=== PATIENT | male | born 1945 | race Caucasian/White ===

== ENCOUNTER 2019-03-30 16:23 | Inpatient (IN) | payer OTHER ==
[~2019-03-30] VITALS: Ht 182.9 cm; Wt 89.7 kg
--- NOTE | ~2019-03-30 | CON ---
[address] [address] CONSULTATION Name: SAURABH PULIDO Room: [address] IN .R.#: [id number] Admission: 03/30/19 Attend Phys: Hawk Malagon MD Discharge: Date of : 43 Report #: [id number] THIS REPORT FOR: //name// CC: Marnie Malagon DATE OF SERVICE: 04/01/2019 REASON FOR CONSULTATION: 1. Left diabetic foot ulceration with lower extremity cellulitis. 2. Left foot radiographs negative for osteomyelitis or soft tissue emphysema. HISTORY OF PRESENT ILLNESS: The patient is a 73-year-old male well known to me from my office. I have been treating him for a diabetic foot ulceration to the left plantar fifth metatarsal styloid, which has recently developed cellulitis extending to the lower leg. He had partial left fifth ray resection performed by myself in 2013 due to osteomyelitis to the distal fifth MTP joint. He had an uneventful postoperative healing course at that time with no vascular intervention required. Roughly 3 days ago, he noticed the development of inflammation with advancing erythema, edema and pain originating from the plantar wound extending proximally up the leg. He denies fevers or chills. Blood glucose not frequently checked. He presented to the Emergency Room 2 days ago and was admitted for parenteral antibiotics and wound care. Venous Doppler negative for DVT. Wound culture was taken today. He is on parenteral vancomycin and ceftriaxone with good tolerance. Blood cultures pending, negative x 2. LABORATORY DATA: WBC 8.3, RBC 4.49, hemoglobin 12.1, hematocrit 37.7, platelets 246. BUN 14, creatinine 0.8, glucose 151. PHYSICAL EXAMINATION: Temperature 98.1, blood pressure 135/72. There is an ulceration to left plantar fifth metatarsal styloid that measures roughly 3.0 x 3.0 cm. There is localized erythema and edema with undermining along the wound periphery. The erythema extends along the dorsal lateral foot to the lower leg, and is receding per the patient history. He has palpable left dorsalis pedis and posterior tibial pulses. There is no pallor, elevation or signs of acute vascular embarrassment to the extremity. The wound bed has a pale pink granular wound bed with some overlying pale slough. There is no exposed bone or tendon. There is no fluctuance or crepitation. There is keratotic slough to the wound margins with undermining with no expressible fluid. IMPRESSION: Diabetic foot ulceration, left plantar fifth metatarsal styloid with cellulitis, no signs of osteomyelitis. PLAN: Excisional ulcer debridement performed with scissors to excise subcutaneous tissue, slough and callus. Scant [place] [address] CONSULTATION Name: SAURABH PULIDO Room: [address] IN M.R.#: [id number] Admission: 03/30/19 Attend Phys: Hawk Malagon MD Discharge: Date of : 44 Report #: [id number] The wound was cleansed and dressed with Aquacel Ag and bordered foam gauze and the extremity with a [id number] Tubigrip stockinette. I do not anticipate any surgical intervention or further imaging at this point. I will order an arterial duplex Doppler. I will order physical therapy for weightbearing to the heel with a walker for short distances and transfers. By: [id number] Figueroa DPM /hari
[~2019-03-30 16:23] MED LIST: BAYER CHEWABLE81 MG PO; CEFAZOLIN2 GM/20 ML IV; CRESTOR10 MG PO; CRESTOR5 MG PO; GLIPIZIDE ER2.5 MG PO; GLIPIZIDE ER5 MG PO; GLUCOPHAGE500 MG PO; METOPROLOL TAR100 MG PO; NORCO 5-325 TA1 EACH PO; ONDANSETRON HCL4 M2 PO; TOPROL XL25 MG PO
[2019-03-30 16:27] VITALS: BP 181/102
[2019-03-30] MEDS ORDERED: TRESIBA FL100 UNIT/1 SUBQ (16:33)
[2019-03-30] MEDS ORDERED: JARDIANCE10 MG PO (16:34)
[2019-03-30 17:11] LABS: ABSOLUTE BASOPHILS 0.1 thou/uL (0.0-0.2); ABSOLUTE EOSINOPHILS 0.3 thou/uL (0.0-0.7); ABSOLUTE LYMPHOCYTES 1.1 thou/uL (0.8-5.3); ABSOLUTE MONOCYTES 0.9 thou/uL (0.0-1.2); ABSOLUTE NEUTROPHILS 6.2 thou/uL (1.6-8.1); BASOPHILS 0.8 %; HEMATOCRIT 40.9 % (42.0-52.0); HEMOGLOBIN 13.4 gm/dL (14.0-18.0); LYMPHOCYTES 12.6 %; MCH 27.3 pg (26.0-34.0); MCHC 32.7 g/dL (28.0-37.0); MCV 83.3 fL (80.0-100.0); MONOCYTES 10.9 %; MPV 8.6 fl. (7.2-11.1); NUCLEATED RBCS 0 /100WBC; PLATELET COUNT* 238 thou/uL (150-400); POLYS 72.7 %; RDW-CV 14.2 % (10.5-14.5); WBC 8.5 thou/uL (4.0-11.0)
[2019-03-30 17:19] LABS: CALCIUM 9.1 mg/dL (8.5-10.1); CREATININE 0.9 mg/dL (0.6-1.3); POTASSIUM 4.6 mmol/L (3.5-5.1)
[2019-03-30 17:29] LABS: ALBUMIN 3.4 g/dL (3.4-5.0); TOTAL BILIRUBIN 0.6 mg/dL (<0.1-1.0); TOTAL PROTEIN 7.9 g/dL (6.4-8.2)
[2019-03-30 17:46] VITALS: BP 168/82
[2019-03-30 18:15] VITALS: BP 156/84
--- NOTE | 2019-03-30 19:29 | NUR ---
PATIENT ADMITTED TO ROOM 103 FROM ER. ALERT AND ORIENTED X 4. NO COMPLAINTS OF PAIN. DOPPLER OF LEFT LEG NEGATIVE. WOUND PHOTOS TAKEN OF LEFT LEG PER PROTOCOL, DRESSING PLACED TO LEFT FOOT TO WOUND. DR. HUDSON TO BE CONSULTED. IVF ROCEPHIN STARTED IN ER AND FINISHED ON FLOOR. IV INFILTRATED AFTER DOSE GIVEN, IV DC'D. VANCOMYCIN AND SCHED IVF TO INFUSE. ORIENTED TO CALL LIGHT. UP AD NEW. CALL LIGHT WITHIN REACH, WILL CONTINUE TO MONITOR.
[2019-03-30 19:50] VITALS: BP 146/80
--- NOTE | 2019-03-31 05:08 | NUR ---
PT SLEPT FAIRLY WELL OVERNIGHT. UP INDEP WITH SURGICAL SHOES TO BR TO VOID WITHOUT DIFFICULTY. RFA IVF INFUSING PER PUMP, ABX GIVEN ORDERED. PT DENIES PAIN. LLE RED AND EDEMATOUS, MEPILEX INTACT TO OUTER L FOOT. HS ACCUCHECK 201, INSULIN GIVEN ORDERED. NO LABS THIS MORNING, VANC TROUGH 1800 TODAY. AOX4, ABLE TO USE CALL LITE AND MAKE NEEDS KNOWN. BLACKFEET.
[2019-03-31 08:00] VITALS: BP 136/77
[2019-03-31 16:00] VITALS: BP 142/68
--- NOTE | 2019-03-31 16:07 | NUR ---
PT.SITTING ON EDGE OF BED. HE WAS ALERT AND ORIENTED AND A BIT HARD OF HEARING. HE LIVES WITH HIS . HE NORMALLY DOESN'T USE ANY DME BUT THEY HAVE CRUTCHES, A WALKER,AND CANE AT HOME. HE HAS HAD HH IN THE PAST BUT CAN'T REMEMBER NAME OF AGENCY. HE HAD IV ANTIBIOTICS AND A WOUND VAC AT HOME 5 YEARS AGO FOR FOOT WOUND. HE IS WAITING ON TO COME IN TO LOOK AT HIS WOUND. ENCOURAGED PT.TO ELEVATE HIS LEGS. FEET ARE PURPLE WHEN DEPENDENT. HE SAID HE MIGHT GO SIT IN THE RECLINER FOR AWHILE.
--- NOTE | 2019-03-31 18:07 | NUR ---
PATIENT ALERT AND ORIENTED X 4. VITAL SIGNS STABLE ON ROOM AIR. UP INDEPENDENTLY IN ROOM. IV PATENT WITH FLUIDS INFUISNG. ANTIBIOTICS GIVEN ORDERED. LEFT LOWER LEG RED AND EDEMATOUS. DRESSING TO WOUND ON LEFT FOOT CHANGED. CLEAN, DRY, AND INTACT. LEFT LEG PROPPED UP ON PILLOW. HOURLY ROUNDS MAINTAINED THROUGHOUT THE SHIFT. CALL LIGHT WITHIN REACH. NURSING WILL CONTINUE TO MONITOR.
[2019-03-31 20:00] VITALS: BP 143/74
[2019-04-01 04:24] LABS: ABSOLUTE BASOPHILS 0.1 thou/uL (0.0-0.2); ABSOLUTE EOSINOPHILS 0.2 thou/uL (0.0-0.7); ABSOLUTE LYMPHOCYTES 1.2 thou/uL (0.8-5.3); ABSOLUTE MONOCYTES 0.8 thou/uL (0.0-1.2); BASOPHILS 0.7 %; HEMATOCRIT 37.7 % (42.0-52.0); HEMOGLOBIN 12.1 gm/dL (14.0-18.0); LYMPHOCYTES 13.9 %; MCHC 32.1 g/dL (28.0-37.0); MONOCYTES 9.6 %; MPV 8.4 fl. (7.2-11.1); NUCLEATED RBCS 0 /100WBC; PLATELET COUNT* 246 thou/uL (150-400); POLYS 72.8 %; RBC 4.49 mil/uL (4.50-6.00); WBC 8.3 thou/uL (4.0-11.0)
[2019-04-01 04:33] LABS: CREATININE 0.8 mg/dL (0.6-1.3); POTASSIUM 4.2 mmol/L (3.5-5.1)
--- NOTE | 2019-04-01 05:34 | NUR ---
PT SLEPT WELL OVERNIGHT. RFA IVF INFUSING PER PUMP, ABX GIVEN ORDERED.HS ACCUCHECK 155, INSULIN GIVEN WITH SNACK. UP AD NEW IN ROOM WITH SURGICAL SHOE TO BATHROOM TO VOID WITHOUT DIFFICULTY. DENIES PAIN. AM LABS DRAWN. ABLE TO USE CALL LITE AND MAKE NEEDS KNOWN. [place].
--- NOTE | 2019-04-01 07:05 | CON ---
[address] [address] CONSULTATION Name: SAURABH PULIDO Room: [address] IN .R.#: [id number] Admission: 03/30/19 Attend Phys: Hawk Malagon MD Discharge: Date of : 44 Report #: [id number] THIS REPORT FOR: //name// CC: Marnie Royalnah Hawk Malagon DATE OF SERVICE: 03/31/2019 INFECTIOUS DISEASE CONSULTATION ATTENDING PHYSICIAN: Hawk Malagon MD REASON FOR EVALUATION: Deep infected ulcer involving the lateral aspect of the left mid-foot as well as skin and soft tissue infection with cellulitic process involving the left leg. HISTORY OF PRESENT ILLNESS: The patient examined. This is a 73-year-old gentleman with diabetes mellitus diagnosed in 2010. He has had previous issues with bilateral lower extremities at fifth metatarsal and toe amputations, previously longstanding ulcer about the mid portion of the lateral aspect. Of course in the last 3-4 days prior to admission, he developed increasing erythema and discomfort associated with the leg to below the knee. He generally has experienced systemic types of illnesses. Denies any pulmonary or gastrointestinal complaints. Did note the ulcer, increasing drainage. There was a bit of an odor. Evaluation thus far has included a lactic acid 1.7. Ultrasound of the lower extremities showed absence of any deep venous thrombosis. He was empirically placed on broad-spectrum antimicrobial therapy with vancomycin as well as ceftriaxone. ALLERGIES: None known. CURRENT MEDICATIONS: Include enoxaparin, pantoprazole, hydralazine as needed, ceftriaxone 1 gram daily, vancomycin, insulin lispro, metoprolol, atorvastatin, metformin, p.r.n. analgesics and antiemetics. 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 SOCIAL HISTORY: Smokes a pack a day, occasional ethanol, no illicit drug use. FAMILY HISTORY: Noncontributory. REVIEW OF SYSTEMS: Otherwise, unremarkable 10-point review of systems with exception of the above [place] [address] CONSULTATION Name: SAURABH PULIDO Room: [address]#: [id number] Admission: 03/30/19 Attend Phys: Hawk Malagon MD Discharge: Date of : 44 Report #: [id number] PHYSICAL EXAMINATION: GENERAL: Alert, cooperative, appropriate. He does have some hearing deficits. He is reasonably well nourished. VITAL SIGNS: Temperature 98.4, pulse 60, respirations 16, blood pressure 136/77. SKIN: Warm, dry. HEENT: Normocephalic. Extraocular muscles intact. NECK: Supple. LUNGS: Clear to auscultation bilaterally. HEART: Regular rate and rhythm without murmur. ABDOMEN: Obese, soft, nontender. EXTREMITIES: Left lower extremity has changes consistent with venous stasis insufficiency, some underlying dermatitis, has a more inflammatory cellulitic type eruption to below the knee. It is palpably tender. There is some moderate degree of inflammation. The lateral aspect of his foot has an ulcer that has got a moderate degree of necrosis. There is an odor, likely some expressible debris and exudate, it is tender as well. AND RECTAL: Deferred. LABORATORY DATA: CBC: White count of 8.5, H and H 13.4 and 40.9, platelets of 238. Differential is unremarkable. Electrolytes: Sodium 135, potassium 4.6, chloride 97, bicarbonate is 30, anion gap of 8, BUN and creatinine 24 and 0.9, glucose of 151. LFTs unremarkable. Albumin 3.4, total protein 7.9. Estimated GFR of 82. Lactic acid 1.7. Blood cultures sterile. ASSESSMENT AND PLAN: Left lower extremity chronic ulceration. I think there is a component of infection, may be polymicrobial. We will continue empiric antimicrobial combination, antibiotic combination. We will go ahead and try to collect a culture specimen, may well need additional imaging. Needs to see Podiatry, Dr. Figueroa has been following, defer to him about his preference. At some point he will need operative debridement. <ELECTRONICALLY SIGNED> By: Javad Daniels MD 04/01/19 0705 1108 [id number] Daniels MD /nt
[2019-04-01 07:51] VITALS: BP 158/88
--- NOTE | 2019-04-01 13:15 | NUR ---
COMNSULTED TO PLACE MIDLINE FOR PT ON VANCOMYCIN FOR NEXT FEW DAYS. PT BROUGHT TO INFUSION LAB. RIGHT UPPER ARM ASSESSED WITH ULTRASOUND. RIGHT CEPHALIC VEIN IDENTIFIED AND NOTED TO BE WIDLEY PATENT. 8CM POWER GLIDE MIDLINE PLACED ON 1ST ATTEMPT WITH ULTRASOUND PER PROTOCOL. LINE NOTED TO HAVE GOOD BRISK BLOOD RETURN AND EASY FLUSH. LINE SECURED INCLUDING STATLOCK AND BIOPATCH. TOLERATED WELL. TRANSPORTED BACK TO ROOM PER GUIDE WINDER. REPORT CALLED TO PRIMARY RN AND LINE RELEASED FOR USE.
[2019-04-01 15:56] VITALS: BP 135/72
--- NOTE | 2019-04-01 17:28 | NUR ---
PT A&Ox4. VITALS STABLE. MIDLINE PLACED, INFUSING. TUBAGRIP IN PLACE ON LLE. UP AD NEW. DENIED PAIN. ON RA. CALL LIGHT WITHIN REACH. WILL CONTINUE TO MONITOR.
[2019-04-01 20:00] VITALS: BP 142/68
[2019-04-02 04:45] LABS: CALCIUM 8.4 mg/dL (8.5-10.1); CREATININE 0.7 mg/dL (0.6-1.3); POTASSIUM 3.8 mmol/L (3.5-5.1)
[2019-04-02 04:47] LABS: ABSOLUTE BASOPHILS 0.1 thou/uL (0.0-0.2); ABSOLUTE EOSINOPHILS 0.2 thou/uL (0.0-0.7); ABSOLUTE LYMPHOCYTES 1.1 thou/uL (0.8-5.3); ABSOLUTE NEUTROPHILS 5.5 thou/uL (1.6-8.1); BASOPHILS 0.8 %; EOSINOPHILS 2.6 %; HEMATOCRIT 36.4 % (42.0-52.0); HEMOGLOBIN 11.7 gm/dL (14.0-18.0); LYMPHOCYTES 14.3 %; MCH 26.9 pg (26.0-34.0); MONOCYTES 12.1 %; MPV 8.1 fl. (7.2-11.1); NUCLEATED RBCS 0 /100WBC; PLATELET COUNT* 245 thou/uL (150-400); POLYS 70.2 %; RBC 4.34 mil/uL (4.50-6.00); WBC 7.8 thou/uL (4.0-11.0)
--- NOTE | 2019-04-02 05:11 | NUR ---
PT SLEPT WELL OVERNIGHT. COMPLAINED OF SOME EDEMA OF HANDS AND FACE EARLY IN SHIFT, NOLEN. DR NOTIFIED AND IVF DISCONTINUED. ABX GIVEN SCHEDULED. UP AD NEW IN ROOM, TO BR TO VOID WITHOUT DIFFICULTY. TUBIGRIP IN PLACE TO LLEG. NO COMPLAINTS OF PAIN. SHASTA MIDLINE SL, ABX. HS ACCUCHECK 163, INSULIN GIVEN ORDERED. AM LABS DRAWN. ABLE TO USE CALL LITE AND MAKE NEEDS KNOWN.
[2019-04-02 07:44] VITALS: BP 119/72
[2019-04-02 13:06] VITALS: BP 119/72
[2019-04-02] MEDS ORDERED: MINOCYCLINE HC100 M2 PO (13:22)
[2019-04-02] MEDS ORDERED: CIPRO500 MG PO (14:51)
[2019-04-02 16:00] VITALS: BP 116/76
--- NOTE | 2019-04-02 17:07 | NUR ---
PT.TO BE DISCHARGED TODAY ON 2 ORAL ANTIBIOTICS. HOME HEALTH NURSING ORDERED FOR DRESSING CHANGES. DISCUSSED WITH PT. HE USED [facility] IN THE PAST AND WOULD LIKE TO USE THEM AGAIN. FAXED H&P,FACE SHEET, FACE TO FACE FORM,PODIATRY CONSULT,COMPRESSION WRAP ORDERS,DRESSING CHANGE ORDERS, MED LIST AND AMBULATION/WB STATUS ORDERS TO [facility]. SHE CONFIRMED SHE RECEIVED THEM. TODAY PT.SAID HE DID NOT HAVE A WALKER LIKE HE THOUGHT HE DID AT HOME. ORDER RECEIVED. PT.CHOSE [facility] HIS DME PROVIDER THEY CONTRACT WITH HIS INSURANCE. FAXED FACE SHEET,ORDER, HT,WT AND CARE NOTE TO [facility]. [facility] DELIVERED FRONT WHEEL WALKER TO ROOM.
--- NOTE | 2019-04-02 18:03 | NUR ---
PT DISCHARGED AND LEFT UNIT AT 1757 WITH NURSING STAFF AND TO HOME WITH HOME HEALTH. IV OUT. PT STABLE UPON DISCHARGE. PERSONAL WALKER SENT WITH PT. PAPER SCRIPTS AND CARE NOTES GIVEN.
== END 2019-04-02 17:51 | disposition home health service (06) | DRG 264 ==
LOC: M.ERS 16:23 → M.TBA-ER 17:26 → M.ORTHSURG 17:26
PROVIDERS: Internal Medicine; Physician Assistant; ADMIT Internal Medicine
PROC: 0JBR0ZZ Excision of Left Foot Subcutaneous Tissue and Fascia, Open Approach (ICD-10-PCS; principal; 2019-03-30)
PROC: B54NZZA Ultrasonography of Left Upper Extremity Veins, Guidance (ICD-10-PCS; 2019-04-01)
PROC: 05HY33Z Insertion of Infusion Device into Upper Vein, Percutaneous Approach (ICD-10-PCS; 2019-04-01)
DX: E11.51 Type 2 diabetes mellitus with diabetic peripheral angiopathy without gangrene (principal); L03.116 Cellulitis of left lower limb; R65.10 Systemic inflammatory response syndrome (SIRS) of non-infectious origin without acute organ dysfunction; L97.528 Non-pressure chronic ulcer of other part of left foot with other specified severity; E11.621 Type 2 diabetes mellitus with foot ulcer; I25.10 Atherosclerotic heart disease of native coronary artery without angina pectoris; I10 Essential (primary) hypertension; E78.00 Pure hypercholesterolemia, unspecified; F17.210 Nicotine dependence, cigarettes, uncomplicated; Z95.1 Presence of aortocoronary bypass graft; Z90.49 Acquired absence of other specified parts of digestive tract; Z89.422 Acquired absence of other left toe(s); Z89.421 Acquired absence of other right toe(s); Z95.5 Presence of coronary angioplasty implant and graft; Z79.899 Other long term (current) drug therapy

== ENCOUNTER → 2019-04-16 | Outpatient (CLI) | payer OTHER ==
[~2019-04-16] MED LIST changes: +CIPRO500 MG PO; +JARDIANCE10 MG PO; +MINOCYCLINE HC100 M2 PO; +TRESIBA FL100 UNIT/1 SUBQ
== END ==
LOC: M.WC 04:56
DX: E11.621 Type 2 diabetes mellitus with foot ulcer (principal); L97.522 Non-pressure chronic ulcer of other part of left foot with fat layer exposed; L84 Corns and callosities; E11.51 Type 2 diabetes mellitus with diabetic peripheral angiopathy without gangrene; E11.40 Type 2 diabetes mellitus with diabetic neuropathy, unspecified; I25.10 Atherosclerotic heart disease of native coronary artery without angina pectoris; F17.200 Nicotine dependence, unspecified, uncomplicated; Z95.1 Presence of aortocoronary bypass graft; Z79.4 Long term (current) use of insulin

== ENCOUNTER → 2019-04-23 | Outpatient (CLI) | payer OTHER | LOC: M.WC 04:59 | DX: E11.621 Type 2 diabetes mellitus with foot ulcer (principal); L97.522 Non-pressure chronic ulcer of other part of left foot with fat layer exposed; E11.40 Type 2 diabetes mellitus with diabetic neuropathy, unspecified; E11.51 Type 2 diabetes mellitus with diabetic peripheral angiopathy without gangrene; L03.116 Cellulitis of left lower limb; I25.10 Atherosclerotic heart disease of native coronary artery without angina pectoris; F17.200 Nicotine dependence, unspecified, uncomplicated ==

== ENCOUNTER → 2019-04-30 | Outpatient (CLI) | payer OTHER | LOC: M.WC 05:10 | DX: E11.621 Type 2 diabetes mellitus with foot ulcer (principal); L89.892 Pressure ulcer of other site, stage 2; L97.522 Non-pressure chronic ulcer of other part of left foot with fat layer exposed; L84 Corns and callosities; E11.51 Type 2 diabetes mellitus with diabetic peripheral angiopathy without gangrene; E11.40 Type 2 diabetes mellitus with diabetic neuropathy, unspecified; I25.10 Atherosclerotic heart disease of native coronary artery without angina pectoris; F17.200 Nicotine dependence, unspecified, uncomplicated ==

== ENCOUNTER → 2019-05-07 | Outpatient (CLI) | payer OTHER | LOC: M.WC 04:48 | DX: E11.621 Type 2 diabetes mellitus with foot ulcer (principal); L89.892 Pressure ulcer of other site, stage 2; L97.522 Non-pressure chronic ulcer of other part of left foot with fat layer exposed; L03.116 Cellulitis of left lower limb; L84 Corns and callosities; E11.51 Type 2 diabetes mellitus with diabetic peripheral angiopathy without gangrene; E11.40 Type 2 diabetes mellitus with diabetic neuropathy, unspecified; I25.10 Atherosclerotic heart disease of native coronary artery without angina pectoris; F17.200 Nicotine dependence, unspecified, uncomplicated ==

== ENCOUNTER → 2019-05-21 | Outpatient (CLI) | payer OTHER ==
[~2019-05-21] MED LIST changes: +AMOX TR-K CLV1 EAC3 PO; +ASPIRIN325 PO; +HYDROCODON-ACE1 EAC7 PO; +LOPRESSOR50 PO
== END ==
LOC: M.WC 05:25
DX: E11.621 Type 2 diabetes mellitus with foot ulcer (principal); L89.892 Pressure ulcer of other site, stage 2; L97.522 Non-pressure chronic ulcer of other part of left foot with fat layer exposed; L84 Corns and callosities; L03.116 Cellulitis of left lower limb; E11.40 Type 2 diabetes mellitus with diabetic neuropathy, unspecified; E11.51 Type 2 diabetes mellitus with diabetic peripheral angiopathy without gangrene; I25.10 Atherosclerotic heart disease of native coronary artery without angina pectoris; F17.200 Nicotine dependence, unspecified, uncomplicated

== ENCOUNTER 2019-06-02 16:11 | Inpatient (IN) | payer OTHER ==
[~2019-06-02] VITALS: Ht 182.9 cm; Wt 106.1 kg
[~2019-06-02 16:11] MED LIST changes: -AMOX TR-K CLV1 EAC3 PO; -ASPIRIN325 PO; -HYDROCODON-ACE1 EAC7 PO; -LOPRESSOR50 PO
[2019-06-02 16:45] LABS: ABSOLUTE BASOPHILS 0.1 thou/uL (0.0-0.2); ABSOLUTE EOSINOPHILS 0.1 thou/uL (0.0-0.7); ABSOLUTE MONOCYTES 1.3 thou/uL (0.0-1.2); ABSOLUTE NEUTROPHILS 9.4 thou/uL (1.6-8.1); BASOPHILS 0.6 %; HEMATOCRIT 37.1 % (42.0-52.0); MCH 25.8 pg (26.0-34.0); MCHC 32.4 g/dL (28.0-37.0); MCV 79.6 fL (80.0-100.0); MONOCYTES 10.9 %; MPV 7.4 fl. (7.2-11.1); NUCLEATED RBCS 0 /100WBC; PLATELET COUNT* 285 thou/uL (150-400); POLYS 79.5 %; RBC 4.66 mil/uL (4.50-6.00); RDW-CV 14.1 % (10.5-14.5); WBC 11.8 thou/uL (4.0-11.0)
[2019-06-02 17:22] LABS: ALBUMIN 3.1 g/dL (3.4-5.0); CALCIUM 9.4 mg/dL (8.5-10.1); CREATININE 0.8 mg/dL (0.6-1.3); POTASSIUM 4.5 mmol/L (3.5-5.1); TOTAL BILIRUBIN 0.7 mg/dL (<0.1-1.0); TOTAL PROTEIN 7.7 g/dL (6.4-8.2)
[2019-06-02 18:03] VITALS: BP 143/71
[2019-06-02 20:47] VITALS: BP 113/56
[2019-06-03] VITALS (7 sets, daily range): BP systolic 99–130; BP diastolic 54–67
--- NOTE | 2019-06-03 06:36 | NUR ---
VSS RA. MEDS GIVEN ORDERED. DRESSING TO LLE CLEAN AND INTACT. PAIN WELL CONTROLLED BY HYDROCODONE. PT UP TO THE BATHROOM WITH STANDBY ASSIST. SLEEPING THROUGH THE NIGHT THIS SHIFT ON HOURLY ROUNDINGS. WILL CONTINUE TO MONITOR.
--- NOTE | 2019-06-03 11:34 | CON ---
[address] [address] CONSULTATION Name: SAURABH PULIDO Room: [address] IN M.R.#: [id number] Admission: 06/02/19 Attend Phys: Vikram Cazares Discharge: Date of : 44 Report #: [id number] THIS REPORT FOR: //name// CC: Vikram Dhaliwal Marnie Sarah DATE OF SERVICE: 06/03/2019 INFECTIOUS DISEASE CONSULTATION ATTENDING PHYSICIAN: Vikram Dhaliwal MD REASON FOR EVALUATION: Inflammatory eruption; left lower extremity, cellulitis, possible abscess. HISTORY OF PRESENT ILLNESS: Chart reviewed, the patient examined. This is a 73-year-old with diabetes mellitus complicated by diffuse vasculopathy, has known coronary disease, peripheral disease, history of toe amputation, bilateral lower extremities, unfamiliar with having seen in March of this year. He presents today with a fairly abrupt onset of left lower extremity distal painful-type erythematous eruption. This was associated with low-grade temperature elevations. Denies significant pulmonary or gastrointestinal-related complaints. Appetite has been somewhat diminished. Started empirically on combination therapy with Zosyn and vancomycin. MEDICATIONS: Include metformin, vancomycin, Zosyn, metoprolol, atorvastatin, insulin lispro. PAST MEDICAL HISTORY: As described above, diabetes mellitus type 2; insulin requiring, vasculopathy, coronary artery disease, previous distal infections with toe amputations, history of hypertension, high cholesterol, previous lap aleksander. SOCIAL HISTORY: Former smoker, occasional ethanol. No illicit drug use. FAMILY HISTORY: Noncontributory. REVIEW OF SYSTEMS: Otherwise, unremarkable 10-point review of systems with exception of the above. PHYSICAL EXAMINATION: GENERAL: He is pleasant, alert, cooperative, in mild distress. VITAL SIGNS: T-max 100.5; more recently 98.2, pulse 62, respirations 18, blood pressure is 129/67. SKIN: Warm, dry, no rashes. HEENT: Normocephalic. [place] [address] CONSULTATION Name: SAURABH PULIDO Room: [address] IN ..#: [id number] Admission: 06/02/19 Attend Phys: Vikram paris Eveleth Discharge: Date of : 44 Report #: [id number] NECK: Supple. LUNGS: Generally clear to auscultation. Few scattered crackles at the bases. HEART: Regular, occasional ectopy, soft systolic murmur. ABDOMEN: Mildly obese, soft, nontender. There are no peritoneal signs. EXTREMITIES: Left lower extremity has erythrodermic-type eruption that extends to below the knee and somewhat tender. He has got a dressing over the foot and ankle. There are no bullous lesions. GENITOURINARY AND RECTAL: Deferred. LABORATORY DATA: MRI showed a peripheral enhancing 4-cm fluid collection along the dorsal lateral aspect of the forefoot, superficial to the lateral margin of the fourth metatarsal suggestive of an abscess. Blood cultures are sterile thus far. Electrolytes: Sodium 133, potassium 4.5, chloride 98, bicarb is 26, anion gap of 9, BUN and creatinine 15 and 0.8, glucose of 156. LFTs unremarkable. Albumin of 3.1. Total protein 7.7. Lactic acid 0.7. CBC: White count of 11.8, H and H 12.0 and 37.1, platelets of 285 and monocytosis of 1300. ASSESSMENT: Left foot skin and soft tissue infection with apparent subcutaneous abscess noted. Dr. Figueroa with Podiatry is following. I think we will benefit from surgical debridement. Continue empiric antimicrobial therapy. On review of the previous culture back in March, did have polymicrobial growth, which did include Pseudomonas as well as MRSA, group B Strep and Prevotella, would obviously favor new cultures, which could be obtained via surgical approach. At this point, he is not overtly toxic. We will add incentive spirometry. We will monitor expectantly. <ELECTRONICALLY SIGNED> By: Javad Daniels MD 06/03/19 1134 1055 [id number] Daniels MD /nt
--- NOTE | 2019-06-03 13:18 | NUR ---
WOUND CARE NOTE: CONSULT RECEIVED FOR LEFT FOOT WOUND, DIABETIC. MRI RESULTS BACK, UPDATED PODIATRY. DRESSING WAS REMOVED FOR PHOTOGRAPHS TO BE OBTAINED. PATIENT ADMITS TO HAVING ONE ULCER, BUT DIDN'T REALIZE HE HAD ANOTHER. THE MOST DISTAL WOUND IS DRAINING PURULENT DRAINAGE. REDNESS AND EDEMA NOTED FROM FOREFOOT UPWARDS TO JUST BELOW HIS KNEE. PLAN IS FOR PATIENT TO GO TO OR WITH PODIATRY THIS EVENING. MRI SUGGESTS AN ABSCESS. DRY DRESSING OF GAUZE, KERLIX, AND SOL APPLIED.
--- NOTE | 2019-06-03 16:01 | NUR ---
CM CAME TO VISIT PT.AND DO ASSESSMENT. HE WAS OFF THE FLOOR. STAFF SAID HE WAS IN SURGERY. WILL SEE IN AM.
--- NOTE | 2019-06-03 17:33 | NUR ---
PATIENT AMBULATING WITH STAND BY ASSISTANCE THROUGHOUT SHIFT. ALL SAFETY MEASURES MAINTAINED. PATIENT NOTIFIED THAT PATIENT WAS BEING TAKEN FOR PROCEDURE AT APPROXIMATELY 1535.
[2019-06-03 18:17] LABS: ANTI-Xa-UNFRACTIONATED HEP 7.292; BE -7.2 mmol/L (-2 to +3); PCO2 39.9 mmHg (35.0-45.0)
[2019-06-03 18:21] LABS: PO2 260.2 mmHg (75.0-100.0); pH 7.292 (7.340-7.450)
[2019-06-03 18:44] LABS: CALCIUM 8.3 mg/dL (8.5-10.1); POTASSIUM 3.7 mmol/L (3.5-5.1)
[2019-06-03 19:03] LABS: HEMATOCRIT 35.6 % (42.0-52.0); HEMOGLOBIN 11.5 gm/dL (14.0-18.0); MCH 25.7 pg (26.0-34.0); MCHC 32.3 g/dL (28.0-37.0); MCV 79.7 fL (80.0-100.0); MPV 7.6 fl. (7.2-11.1); RBC 4.46 mil/uL (4.50-6.00); RDW-CV 13.8 % (10.5-14.5); WBC 15.3 thou/uL (4.0-11.0)
--- NOTE | 2019-06-03 19:51 | NUR ---
Assumed care of patient around 1730 placed on propofol gtt. ARTLINE PLACED BY DR COBB PT REMAINS ON VENT SR PER MONITOR APPEARES COMFORTABLE.
[2019-06-04] VITALS (23 sets, daily range): BP systolic 90–180; BP diastolic 41–95
[2019-06-04 03:45] LABS: HEMATOCRIT 34.6 % (42.0-52.0); MCH 25.4 pg (26.0-34.0); MCHC 31.9 g/dL (28.0-37.0); MCV 79.7 fL (80.0-100.0); MPV 7.9 fl. (7.2-11.1); RBC 4.34 mil/uL (4.50-6.00); WBC 12.4 thou/uL (4.0-11.0)
[2019-06-04 03:54] LABS: CALCIUM 8.2 mg/dL (8.5-10.1); CREATININE 1.7 mg/dL (0.6-1.3)
[2019-06-04 03:55] LABS: POTASSIUM 5.2 mmol/L (3.5-5.1)
[2019-06-04 08:47] LABS: BE -5.5 mmol/L (-2 to +3); PO2 101.1 mmHg (75.0-100.0); pH 7.389 (7.340-7.450)
--- NOTE | 2019-06-04 11:00 | NUR ---
PT.ON VENT AFTER SEVERE BRADYCARDIA YESTERDAY IN SURGERY. PROCEDURE HAD NOT STARTED YET. HOPEFULLY ABLE TO EXTUBATE TODAY. KNOWN FROM PREVIOUS ADMISSION. HE FOLLOWS IN WOUND CARE CLINIC FOR LLE FOOT WOUND. HOME HEALTH AGENCY IS [facility] HE HAS A WALKER HE USES AT HOME. HE IS USUALLY INDEPENDENT AT HOME. CM WILL FOLLOW FOR DISCHARGE PLANNING.
--- NOTE | 2019-06-04 14:22 | 2DMMODE ---
[place] [address] 2 D/M-MODE ECHOCARDIOGRAM Name: SAURABH PULIDO Room: [address] IN [facility]#: [id number] Admission: 06/02/19 Attend Phys: Vikram paris Sa Discharge: Date of : 43 Date of Service: 06/04/19 1422 Report #: [id number] THIS REPORT FOR: //name// APPROVED REPORT Study performed: 06/04/2019 10:21:18 EXAM: Comprehensive 2D, Doppler, and color-flow Echocardiogram Patient Location: In-Patient Room #: [facility] Status: routine BSA: 2.19 HR: 64 bpm BP: 100/59 mmHg Rhythm: NSR Other Information Study Quality: Good Indications Atrial Fibrillation 2D Dimensions IVSd: 13.31 (7-11mm) LVOT Diam: 19.43 (18-24mm) LVDd: 61.04 mm PWd: 11.08 (7-11mm) Ascending Ao: 35.54 (22-36mm) LVDs: 45.12 (25-40mm) Aortic Root: 34.75 mm Volumes Left Atrial Volume (Systole) LA ESV Index: 44.10 mL/m2 Aortic Valve AoV Peak Jin.: 1.34 m/s AO Peak Gr.: 7.23 mmHg LVOT Max P.62 mmHg AO Mean Gr.: 4.39 mmHg LVOT Mean P.81 mmHg LVOT Max V: 0.95 m/s AO V2 VTI: 26.88 cm LVOT Mean V: 0.62 m/s ANDRY (VTI): 2.04 cm2 LVOT V1 VTI: 18.46 cm Mitral Valve E/A Ratio: 1.78 MV Decel. Time: 192.69 ms MV E Max Jin.: 0.98 m/[place] [address] 2 D/M-MODE ECHOCARDIOGRAM Name: SAURABH PULIDO Room: [address] IN .R.#: [id number] Admission: 06/02/19 Attend Phys: Vikram paris Sa Discharge: Date of : 43 Date of Service: 06/04/19 1422 Report #: [id number] MV PHT: 55.88 ms MVA (PHT): 3.94 cm2 TDI E/Lateral E': 9.80 E/Medial E': 19.60 Medial E' Jin.: 0.05 m/s Lateral E' Jin.: 0.10 m/s Pulmonary Valve PV Peak Jin.: 1.06 m/s PV Peak Gr.: 4.52 mmHg Tricuspid Valve RAP Estimate: 10.00 mmHg TR Peak Gr.: 29.80 mmHg RVSP: 39.00 mmHg PA Pressure: 39.00 mmHg Left Ventricle The left ventricle is normal size. There is mild septal hypokinesis. Mild concentric left ventricular hypertrophy. Left ventricular systolic function is mildly decreased. LVEF is 45-50%. The left ventricular diastolic function is normal. Right Ventricle The right ventricle is normal size. The right ventricular systolic function is normal. Atria Left atrium is mildly dilated. The right atrium size is normal. Aortic Valve Mild aortic valve sclerosis. No aortic regurgitation is present. There is no aortic valvular stenosis. Mitral Valve The mitral valve is normal in structure. Mild mitral regurgitation. No evidence of mitral valve stenosis. Tricuspid Valve The tricuspid valve is normal in structure. Mild tricuspid regurgitation. Mild pulmonary hypertension. Pulmonic Valve The pulmonary valve is normal in structure. Trace [place] [address] 2 D/M-MODE ECHOCARDIOGRAM Name: SAURABH PULIDO Room: [address] IN [facility]#: [id number] Admission: 06/02/19 Attend Phys: Vikram paris Sa Discharge: Date of : 43 Date of Service: 06/04/19 1422 Report #: [id number] Great Vessels The aortic root is normal in size. IVC is normal in size and collapses >50% with inspiration. Pericardium There is no pericardial effusion. Left pleural effusion. <Conclusion> The left ventricle is normal size. Mild concentric left ventricular hypertrophy. Left ventricular systolic function is mildly decreased. LVEF is 45-50%. The right ventricle is normal size. Left atrium is mildly dilated. Mild aortic valve sclerosis. No aortic regurgitation is present. There is no aortic valvular stenosis. The mitral valve is normal in structure. Mild mitral regurgitation. The tricuspid valve is normal in structure. Mild tricuspid regurgitation. Mild pulmonary hypertension. There is no pericardial effusion. There is mild septal hypokinesis. <ELECTRONICALLY SIGNED> By: Cornel Patiño MD, FACC 06/04/19 142 21 142 Cornel Patiño MD, FACC /INF
[2019-06-04 14:33] LABS: PCO2 29.2 mmHg (35.0-45.0); PO2 114.1 mmHg (75.0-100.0); pH 7.341 (7.340-7.450)
--- NOTE | 2019-06-04 15:02 | EKG ---
[place] [address] ELECTROCARDIOGRAM REPORT Name: SAURABH PULIDO Room: [address] ADM IN M.R.#: [id number] Admission: 06/02/19 Attend Phys: Vikram Cazares Discharge: Date of : 43 Report #: [id number] THIS REPORT FOR: //name// [facility] Test Date: 2019-06-03 Test Time: 19:29:29 Pat Name: SAURABH PULIDO Department: Room: [address] Gender: M Developer Relations Manager: [id number] : 1945 Requested By: Marvel Franklin Order Number: [id number] Asad MD: Cornel Patiño Measurements Intervals [place] Rate: 91 P: NV: QRS: -21 QRSD: 102 T: -8 QT: 394 QTc: 485 Interpretive Statements Atrial fibrillation Inferior infarct, old Borderline ST elevation, anterolateral leads Compared to ECG 02/24/2014 07:32:03 ST (T wave) deviation now present Sinus rhythm no longer present First degree AV block no longer present Left ventricular hypertrophy no longer present Myocardial infarct finding still present Electronically Signed On 06-04-2019 15:02:42 CDT by Cornel Patiño [email or web address] <ELECTRONICALLY SIGNED> By: Cornel Patiño MD, FACC 06/04/19 1502 28 28 Cornel Patiño MD, FAC /EPI
--- NOTE | 2019-06-04 15:53 | NUR ---
PATIENT EXTUBATED TO NASAL CANNULA. AWAKE AND ALERT TAKING SIPS OF H2O.SOUNDS CLEAR. GIVEN PAIN MED FOR FOOT PAIN TOLERATED DEBRIDEMENT.
--- NOTE | 2019-06-04 17:38 | CON ---
[address] [address] CONSULTATION Name: SAURABH PULIDO Room: [address] IN M.R.#: [id number] Admission: 06/02/19 Attend Phys: Vikram Cazares Discharge: Date of : 43 Report #: [id number] THIS REPORT FOR: //name// CC: Christos Lelejanis FAM unknown Vikram Dhaliwal INDICATION: Code blue. HISTORY OF PRESENT ILLNESS: The patient is a 73-year-old gentleman with history of coronary artery disease. The patient's reports that he had bypass surgery twice in the past, remotely. He has had 12 stents placed. He does not presently have a town planner. She reports that he may have had a heart attack at one point in time or another, but denies any known history of congestive heart failure. The patient was admitted with a nonhealing ulcer on the foot with associated cellulitis and was being prepared for debridement when he became bradycardic and lost pulse. At that point in time, acute resuscitation was undertaken in the operating room. The patient had rhythms ranging from atrial fibrillation to wide complex tachycardia. The patient had 2 rounds of CPR. The patient's pulse was eventually stabilized and the patient transferred to the Intensive Care Unit. The patient is presently intubated and unresponsive. He has a decent blood pressure and pulse. He remains in atrial fibrillation with a controlled ventricular response rate. PAST MEDICAL HISTORY: 1. Insulin requiring diabetes. 2. Coronary artery disease with 2 prior bypass surgeries and a total of 12 stents placed. 3. Hypertension. 4. Hyperlipidemia. 5. History of laparoscopic cholecystectomy. 6. Jackson cyst removal. 7. Renal cyst removal. 8. Previous amputation of toes. 9. Chronic tobacco abuse. SOCIAL HISTORY: From review of the chart shows him to be a daily smoker and drinks alcohol. REVIEW OF SYSTEMS: Not obtainable. ALLERGIES: No known drug allergies. CURRENT MEDICATION ORDERS: Morphine sulfate p.r.n., Jardiance 10 mg daily, metformin at 1000 mg b.i.d., vancomycin IV, piperacillin IV, heparin 5000 units subcutaneous t.i.d., metoprolol tartrate 100 mg b.i.d., Lipitor 40 mg at bedtime, Tylenol p.r.n., [place] [address] CONSULTATION Name: SAURABH PULIDO Room: [address]#: [id number] Admission: 06/02/19 Attend Phys: Vikram paris Erin Discharge: Date of : 43 Report #: [id number] PHYSICAL EXAMINATION: VITAL SIGNS: Currently, blood pressure 120/70, pulse is in the 70s and irregular. GENERAL: This is an elderly male who is intubated and unresponsive. HEENT: Head is normocephalic, atraumatic. NECK: Shows no obvious jugular venous distention. CHEST: Clear anteriorly. CARDIAC: Reveals an irregular rhythm without gallop or murmur. ABDOMEN: Reveals a soft abdomen without acute findings. EXTREMITIES: Shows no edema. Left lower extremity is wrapped. IMPRESSION AND RECOMMENDATIONS: 1. Cardiac arrest in the operating room. Etiology is not clear at this point in time. We will obtain echocardiogram, electrocardiogram, and serial cardiac enzymes. Continue supportive care at this time. He is hemodynamically stable presently. 2. Atrial fibrillation, duration unknown. The patient is on subcutaneous heparin at this time. We will transition to a heparin drip. Rate is adequately controlled presently. We will observe overnight. 3. Hypertension, presently stable. 4. Hyperlipidemia, previously on statin agent. 5. Diabetes per hospitalist. 6. Probable/possible sepsis. Continue IV antibiotics and supportive care. <ELECTRONICALLY SIGNED> By: Marvel Franklin MD, FACC 06/04/19 1738 1820 [id number] Franklin MD, FACC /nt
[2019-06-05] VITALS (19 sets, daily range): BP systolic 90–149; BP diastolic 51–96
--- NOTE | 2019-06-05 04:45 | NUR ---
ASSUMED CARE AT 1910H, ON NC AT 2LPM AND TOLERATED. NOTED PT DECREASE IN URINE OUTPUT. INSTRUCTED PT TO DRINK MORE WATER. NO BLEEDING NOTED. PT COMPLAIN OF CHEST PAIN FROM CHEST COMPRESSIOM, PAIN MEDS GIVEN. CONTINUE MONITORING AND TOWARDS GOAL.
[2019-06-05 05:26] LABS: HEMATOCRIT 35.6 % (42.0-52.0); HEMOGLOBIN 11.4 gm/dL (14.0-18.0); MCH 25.3 pg (26.0-34.0); RBC 4.51 mil/uL (4.50-6.00); RDW-CV 13.9 % (10.5-14.5); WBC 12.4 thou/uL (4.0-11.0)
[2019-06-05 05:33] LABS: CALCIUM 8.5 mg/dL (8.5-10.1); MAGNESIUM 2.1 mg/dL (1.8-2.4); POTASSIUM 5.4 mmol/L (3.5-5.1)
[2019-06-05 05:36] LABS: CREATININE 3.7 mg/dL (0.6-1.3)
[2019-06-05 08:11] LABS: CREATININE 3.9 mg/dL (0.6-1.3); POTASSIUM 5.4 mmol/L (3.5-5.1)
[2019-06-05 09:49] LABS: URINE BILIRUBIN NEGATIVE (Negative); URINE BLOOD 3+ (Negative); URINE CLARITY TURBID; URINE COLOR RED; URINE GLUCOSE-RANDOM TRACE (Negative); URINE KETONES 1+ (Negative); URINE PROTEIN 3+ (Negative)
[2019-06-05 09:51] LABS: URINE LEUKOCYTES-REFLEX 2+ (Negative); URINE NITRITE-REFLEX POSITIVE (Negative)
[2019-06-05 09:53] LABS: BACTERIA-REFLEX 1-9 Few /HPF (None Seen); CASTS None Seen /LPF (None Seen); CRYSTALS None Seen /LPF (None Seen); MUCUS 4-6 Moderate strn/LPF (None Seen); SQUAMOUS 0-3 Few /LPF (0-3); URINE RBC >20 Many /HPF (0-2)
--- NOTE | 2019-06-05 17:50 | NUR ---
VSS.PATIENT SERVICES REP IN PLACE.PT REMAINS ON 2L O2 NC.PT MADE TELEMETRY STATUS.PAIN MANAGED WELL WITH IV MEDICATIONS.IVF INFUSING PER ORDERS.TREVINO SECURE AND PATENT WITH POOR OUTPUT AND BLOOD TINGED URINE.UA SENT.RENAL US COMPELTED.PT INFORMED OF PLAN OF CARE AND COMMUNICATES UNDERSTANDING.PT LEFT RESTING IN BED WITH CALL LIGHT AND FALL PRECAUTIONS IN PLACE.WILL CONTINUE TO MONITOR FOR DURATION OF SHIFT.
[2019-06-06 00:23] VITALS: BP 130/84
[2019-06-06 04:00] VITALS: BP 122/69
[2019-06-06 04:41] LABS: ABSOLUTE MONOCYTES 1.9 thou/uL (0.0-1.2); ABSOLUTE NEUTROPHILS 10.9 thou/uL (1.6-8.1); BASOPHILS 0.4 %; EOSINOPHILS 0.3 %; HEMOGLOBIN 11.6 gm/dL (14.0-18.0); LYMPHOCYTES 6.9 %; MCH 25.5 pg (26.0-34.0); MCHC 32.3 g/dL (28.0-37.0); MCV 79.2 fL (80.0-100.0); MONOCYTES 13.9 %; MPV 7.8 fl. (7.2-11.1); NUCLEATED RBCS 0 /100WBC; PLATELET COUNT* 320 thou/uL (150-400); POLYS 78.5 %; RBC 4.54 mil/uL (4.50-6.00); RDW-CV 14.4 % (10.5-14.5); WBC 13.8 thou/uL (4.0-11.0)
[2019-06-06 04:53] LABS: ALBUMIN 2.5 g/dL (3.4-5.0); CALCIUM 9.1 mg/dL (8.5-10.1); MAGNESIUM 2.6 mg/dL (1.8-2.4); TOTAL BILIRUBIN 0.5 mg/dL (<0.1-1.0); TOTAL PROTEIN 6.7 g/dL (6.4-8.2)
[2019-06-06 04:54] LABS: CREATININE 5.3 mg/dL (0.6-1.3)
--- NOTE | 2019-06-06 05:05 | NUR ---
ASSUMED CARE AT 1920H, ON NC AT 2LPM AND TOLERATED. NO DISTRESS NOTED AND STILL COMPLAINING OF CHEST WALL PAIN, PRN MEDS GIVEN. NO BLEEDING NOTED. CONTINUE MONITORING AND TOWARD GOALS.
[2019-06-06 08:00] VITALS: BP 126/75
--- NOTE | 2019-06-06 09:09 | CON ---
[address] [address] CONSULTATION Name: ASHOKSAURABH J Room: [address] IN M.R.#: [id number] Admission: 06/02/19 Attend Phys: Vikram Cazares Discharge: Date of : 43 Report #: [id number] THIS REPORT FOR: //name// CC: Christos Henry FAM unknown Vikram Dhaliwal REASON FOR CONSULTATION: This is a consultation obtained by Dr. Malagon for acute kidney injury. HISTORY OF PRESENT ILLNESS: The patient is a very pleasant 73-year-old gentleman who was seen in the intensive care unit. He has history of diabetes for which he uses insulin. He also has history of coronary artery disease with remote history of bypass surgeries and stents. The patient had a nonhealing ulcer on his left foot for which he had required previous courses of antibiotics and debridement as an outpatient. He was recently admitted for inpatient management and debridement. The patient was taken to the OR for a debridement procedure. During that procedure, he became bradycardic and lost his pulse. CPR was initiated. He was subsequently restored to normal circulation and intubated and transferred to the intensive care unit. This morning, he was extubated. He is not making much urine. His blood pressure is stabilized. He is not on any pressors or IV fluids. We have been consulted for rising creatinine and for oliguric state. PAST MEDICAL HISTORY: Insulin requiring diabetes, history of coronary artery disease with history of bypass surgery in the past and history of coronary artery stenting, dyslipidemia, hypertension, laparoscopic cholecystectomy, history of removal of renal cyst in the past, history of amputation of toes, chronic tobacco abuse. PERSONAL, SOCIAL AND FAMILY HISTORY: Reviewed in the chart. The patient continues to be a smoker and occasional use of alcohol. REVIEW OF SYSTEMS: He complains of chest pain to me, but that is mechanical pain from the CPR. It hurts to breathe as expected. He denies any fevers or chills. He denies any abdominal pain. ALLERGIES: None. MEDICATIONS: Currently enoxaparin 100 subcutaneous, Lipitor, Zosyn, insulin per protocol, metoprolol 100 b.i.d., aspirin 325, p.r.n. fentanyl, Solu-Medrol IV daily. PHYSICAL EXAMINATION: GENERAL: He is awake. He is alert. He is answering [place] [address] CONSULTATION Name: SAURABH PULIDO Neville Room: [address]#: [id number] Admission: 06/02/19 Attend Phys: Vikram Cazares Discharge: Date of : 43 Report #: [id number] VITAL SIGNS: His blood pressure is 124/79 this morning, has been in the low 90s to low 100s also over the past 2 days. His pulse is in the 60s. He is at 99% saturation on 2 liters oxygen, diminished air entry of the lungs on the right side. HEENT: His mucous membranes are very dry. NECK: Veins are flat. LUNGS: Diminished air entry in the right lung. HEART: Regular S1, S2. ABDOMEN: Soft. EXTREMITIES: Left leg is wrapped up in a dressing. Edema is noticed and erythema is noticed over the saunders. Right leg shows no edema. LABORATORY DATA: Reviewed. White count is 12.4 down from 15.3 yesterday, hemoglobin is 11.4, platelets are 268,000. Metabolic panel was reviewed. Sodium 132, potassium is 5.4, chloride 98, bicarbonate 17, anion gap 17, creatinine has gone up very rapidly from 0.8-1 at the baseline to 1.7, then 3.7, then 3.9 this morning. His albumin is 3.1. Troponins had risen but now dropping. AST 21, ALT 39, magnesium 2.1. Urinalysis shows concentrated urine with specific gravity of 1.020, significant protein, ketones, blood, rbc's and wbc's. The urine is visibly bloody. Vancomycin trough from 2 days ago was 15. Blood gas from yesterday morning, pH of 7.3, pCO2 of 49, pO2 of 114, bicarbonate of 15.4. IMAGING STUDIES: Chest x-ray was reviewed individually and it shows left-sided atelectasis and pneumonia persisting with a small left-sided pleural effusion. Right lung is well aerated. Renal ultrasound was performed, which shows right kidney with a questionable isoechoic mass in the mid to superior pole region around 2.6 cm, normal size kidneys bilaterally, no hydronephrosis reported. Urinary bladder is decompressed by a Hughes, small amount of ascites. ASSESSMENT: 1. Acute kidney injury, oliguric. 2. Recent cardiac arrest with bradycardia that led to loss of pulse during the procedure. 3. Acute kidney injury, in all likelihood secondary to hemodynamic causes and loss of perfusion during the cardiac arrest. 4. Multiple antibiotics recently, which could have contributed though his baseline creatinine seems to be fairly decent all the way up going into the procedure when he had the cardiac arrest. 5. Elevated troponins with non-ST elevation myocardial infarction, probably demand ischemia. 6. Left leg nonhealing ulcer, status post debridement at bedside with associated cellulitis and possibly sepsis from the same. 7. Anemia. 8. Diabetes, insulin dependent. 9. Hypertension. [facility] [address] [place] [address] CONSULTATION Name: SAURABH PULIDO Room: [address] IN .R.#: [id number] Admission: 06/02/19 Attend Phys: Vikram Cazares Discharge: Date of : 43 Report #: [id number] 10. Dyslipidemia. PLAN: 1. Acute kidney injury from hemodynamic causes. 2. The patient generally appears hypovolemic by exam. He also has underlying sepsis from his cellulitis as well as from his left lung pneumonia. 3. Recommend starting normal saline at 75 mL an hour. 4. Send urine for sodium and creatinine. 5. Urinalysis shows significant hematuria and proteinuria. He has had the catheter from before the procedure. Some of it could be due to traumatic catheterization. We will repeat urinalysis once he starts making more urine. 6. He needs very close monitoring of intake and output. Presence of oliguria is not a good sign and needs to be followed closely. The patient may need dialysis in the next day or two if his renal function does not improve and turn around. 7. Check phosphate levels in the morning. 8. Check urine electrolytes. 9. No nephrotoxic medications. No IV contrast. No NSAID. No SOL inhibitors or ARBs. 10. Renal diet. 11. Anion gap metabolic acidosis. Anticipate improving with intravenous fluids. Thank you for the consultation. We will continue to follow and provide necessary support during the hospital stay. <ELECTRONICALLY SIGNED> By: Charles Womack MD 06/06/19 0909 1354 [id number] Womack MD /nt
--- NOTE | 2019-06-06 10:45 | NUR ---
PT.SITS ON SIDE OF BED WITH HEAD ON A PILLOW ON OVERBED TABLE. C/O CHEST AND BACK SORENESS FROM COMPRESSIONS DURING CPR. POTENTIAL NEED FOR ACUTE DIALYSIS. TO BE DETERMINED BY NEPHROLOGY.
[2019-06-06 11:59] VITALS: BP 118/79
[2019-06-06 14:34] LABS: CALCIUM 9.5 mg/dL (8.5-10.1); CREATININE 5.8 mg/dL (0.6-1.3); POTASSIUM 5.6 mmol/L (3.5-5.1)
--- NOTE | 2019-06-06 19:39 | NUR ---
RECEIVED REPORT FROM TOPHER JAVIER IN ICU. PT ARRIVED TO TELE FLOOR AROUND 1909. PT SETTELED IN ROOM. ORIENTED TO ROOM, BED AND CALL LIGHT. PT COMMUNICATES UNDERSTANDING. TRANSPLANT COORDINATOR PLACED. LEFT HAND IV PULLED OUT IN TRANSFER. AT BEDSIDE. PT DENIES PAIN OR CONCERNS AT THIS TIME. TREVINO IN PLACE TO DD, URINE YELLOW. DRESSING/WRAP TO LEFT FOOT CDI. DEPENDENT EDEMA NOTED TO BLE. O2 AT 2L PER NC PLACED. PT LEFT RESTING IN BED, CALL LIGHT WITHIN REACH. FALL PRECAUTIONS IN PLACE.
[2019-06-06 20:00] VITALS: BP 144/84
[2019-06-07 00:34] VITALS: BP 135/72
[2019-06-07 02:06] LABS: COMPLEMENT-C4 19 mg/dL (14-44)
[2019-06-07 04:22] VITALS: BP 138/80
[2019-06-07 04:37] LABS: HEMATOCRIT 38.4 % (42.0-52.0); HEMOGLOBIN 12.3 gm/dL (14.0-18.0); MCH 25.2 pg (26.0-34.0); MCHC 31.9 g/dL (28.0-37.0); MCV 78.9 fL (80.0-100.0); MPV 7.5 fl. (7.2-11.1); RBC 4.87 mil/uL (4.50-6.00); RDW-CV 14.2 % (10.5-14.5); WBC 15.3 thou/uL (4.0-11.0)
[2019-06-07 04:46] LABS: CALCIUM 9.4 mg/dL (8.5-10.1); CREATININE 6.4 mg/dL (0.6-1.3); MAGNESIUM 2.6 mg/dL (1.8-2.4); POTASSIUM 5.8 mmol/L (3.5-5.1)
[2019-06-07 05:05] LABS: PHOSPHORUS* 9.2 mg/dL (2.5-4.9); URIC ACID* 7.8 mg/dL (2.6-7.2)
--- NOTE | 2019-06-07 06:58 | NUR ---
ASSUMED CARE OF PT AFTER REPORT AT 1930. PT A&OX4. VSS. PHYSICAL ASSESSMENT COMPLETED AND CHARTED. PT ON O2 AT 2L NC. PT TRACING SR ON TELE. PT UPSTANDBY TO RESTROOM. PT COMPLAINED OF BACK PAIN-MEDS GIVEN PER OCT. PT WITH BELINDA TO DEPENDENT DRAIN. CALL LIGHT WITHIN REACH.
[2019-06-07 08:00] VITALS: BP 136/80
[2019-06-07 14:32] VITALS: BP 134/83
[2019-06-07 15:02] VITALS: BP 134/83
--- NOTE | 2019-06-07 18:32 | NUR ---
ASSUMED PT CARE AT 0730. ASSESSMENT COMPLETED CHARTED. ABLE TO MAKE NEEDS KNOWN. CHEST PAIN AND BACK PAIN FROM CPR THAT HAPPENED ABOUT 4 DAYS AGO AND GAVE PRN PAIN MEDICATION CHARTED. TEMP DIALYSIS CATH INSERTED TODAY FOR DIALYSIS TONIGHT. SITTING UP IN BED ALL DAY. WILL CONTINUE TO MONITOR.
[2019-06-07 20:00] VITALS: BP 122/74
[2019-06-07 23:05] LABS: HEPATITIS B SURFACE AG Negative (Negative)
[2019-06-08 04:00] VITALS: BP 153/91
[2019-06-08 04:20] LABS: HEMATOCRIT 39.8 % (42.0-52.0); HEMOGLOBIN 13.1 gm/dL (14.0-18.0); MCH 25.8 pg (26.0-34.0); MCV 78.3 fL (80.0-100.0); MPV 7.6 fl. (7.2-11.1); RBC 5.08 mil/uL (4.50-6.00); RDW-CV 14.2 % (10.5-14.5); WBC 16.9 thou/uL (4.0-11.0)
[2019-06-08 04:39] LABS: ALBUMIN 2.6 g/dL (3.4-5.0); CALCIUM 9.3 mg/dL (8.5-10.1); PHOSPHORUS* 8.4 mg/dL (2.5-4.9)
[2019-06-08 04:45] LABS: POTASSIUM 4.8 mmol/L (3.5-5.1)
[2019-06-08 08:00] VITALS: BP 131/73
[2019-06-08 14:00] VITALS: BP 147/85
--- NOTE | 2019-06-08 19:01 | NUR ---
ASSUMED PT CARE AT 0730. ASSESSMENT COMPLETED CHARTED. ABLE TO MAKE NEEDS KNOWN. UP WITH SBA. C/O CHEST AND BACK PAIN AND GAVE PRN PAIN MEDICATION NEEDED. PT RESTING IN BED AT THIS TIME. WILL CONTINUE TO MONITOR.
[2019-06-08 20:00] VITALS: BP 146/89
[2019-06-09 00:31] VITALS: BP 132/76
[2019-06-09 04:00] VITALS: BP 142/83
[2019-06-09 05:04] LABS: CALCIUM 9.3 mg/dL (8.5-10.1); MAGNESIUM 2.6 mg/dL (1.8-2.4)
[2019-06-09 05:15] LABS: CREATININE 7.7 mg/dL (0.6-1.3)
--- NOTE | 2019-06-09 06:47 | NUR ---
PT RESTED T/O NIGHT. PT PAIN IS BECOMING MORE MANAGED WITH ORAL AND TRANSDERMAL ANALGESICS. MEDS GIVEN PER EMAR. PT PROGRESSING TOWARDS GOAL.
[2019-06-09 09:01] VITALS: BP 140/80
[2019-06-09 16:27] VITALS: BP 149/80
--- NOTE | 2019-06-09 18:14 | NUR ---
PT A&Ox3-4. VITALS STABLE. UP WITH 1 USING GAIT BELT AND WALKER, NWB LLE. DIALYSIS TODAY, 3.5L OFF. ON RA. COMPAINTS OF STERNAL/RIB PAIN POST CPR, PARTIALLY RELIEVED WITH NORCO. DENIED N/V. TOLERATING DIET. IJ PATENT. IV R HAND PATENT, INFUSING. ACCU CHECK. BM TODAY. BELINDA PATENT. FALL PRECAUTIONS IN PLACE CALL LIGHT WITHIN REACH. WILL CONTINUE TO MONITOR.
[2019-06-09 20:00] VITALS: BP 119/89
[2019-06-10] VITALS: BP 139/80
[2019-06-10 04:00] VITALS: BP 148/83
--- NOTE | 2019-06-10 06:54 | NUR ---
PT SLEPT MOST OF SHIFT. ASSESSMENT DOCUMENTED. MEDS GIVEN PER E-MAR. IV PATENT, ABX INFUSED. PAIN MEDS GIVEN PER E-MAR. TELE MONITOR IN PLACE. WILL CONTINUE WITH PLAN OF CARE.
[2019-06-10 08:00] VITALS: BP 147/72
[2019-06-10 10:14] LABS: CALCIUM 9.2 mg/dL (8.5-10.1); CREATININE 7.2 mg/dL (0.6-1.3); POTASSIUM 4.6 mmol/L (3.5-5.1)
[2019-06-10 11:30] VITALS: BP 169/89
[2019-06-10 13:08] LABS: GLOBULIN TOTAL 3.7 g/dL (2.2-3.9); M-SPIKE 0.2 g/dL (Not Observed)
--- NOTE | 2019-06-10 13:20 | NUR ---
RECEIVED REPORT FROM BRITTNEY JAVIER. ASSUMED CARE OF PT AROUND 0730. PT A&O X4, HARD OF HEARING. PLEASANT. VSS. COLLATING MACHINE OPERATOR IN PLACE TRACING SB WITH 1ST DEGREE AV BLOCK. AM ASSESSMENT AND VITALS COMPLETED CHARTED. PT REPORTED BACK AND RIB PAIN THAT HAS BEEN MANAGED WITH PO AND TRANSDERMAL PAIN MEDICATION WITH PARTIAL RELEIF. PT ABLE TO WORK WITH THERAPY THIS AM TO GET UP TO THE CHAIR. PT ALSO ABLE TO PERFORM SELF CARE BATH THIS AM. MEDS PER EMAR. NO COMPLAINTS AT THIS TIME. DRESSING TO LEFT FOOT CDI. PT CURRENTLY SITTING UP IN BEDSIDE CHAIR. FALL PRECAUTIONS IN PLACE. CALL LIGHT IS WITHIN REACH. HOURLY ROUNDING PERFORMED. REPORT GIVEN TO PADDY JAVIER.
[2019-06-10 20:30] VITALS: BP 160/81
[2019-06-11] VITALS (8 sets, daily range): BP systolic 141–162; BP diastolic 69–89
--- NOTE | 2019-06-11 05:15 | NUR ---
PT SLEPT ON AND OFF THIS SHIFT. ASSESSMENT DOCUMENTED. MEDS GIVEN PER E-MAR. IV PATENT. PAIN MEDS GIVEN PER E-MAR. IV PATENT. TREVINO IN PLACE. WILL CONTINUE WITH PLAN OF CARE.
[2019-06-11 05:37] LABS: HEMATOCRIT 38.4 % (42.0-52.0); HEMOGLOBIN 12.7 gm/dL (14.0-18.0); MCH 25.6 pg (26.0-34.0); MCHC 32.9 g/dL (28.0-37.0); MCV 77.9 fL (80.0-100.0); MPV 7.4 fl. (7.2-11.1); RBC 4.94 mil/uL (4.50-6.00); RDW-CV 14.4 % (10.5-14.5); WBC 14.5 thou/uL (4.0-11.0)
[2019-06-11 05:52] LABS: ALBUMIN 2.4 g/dL (3.4-5.0); CALCIUM 8.4 mg/dL (8.5-10.1); POTASSIUM 4.3 mmol/L (3.5-5.1); TOTAL BILIRUBIN 0.5 mg/dL (<0.1-1.0); TOTAL PROTEIN 6.6 g/dL (6.4-8.2)
--- NOTE | 2019-06-11 13:10 | CON ---
[address] [address] CONSULTATION Name: SAURABH PULIDO Room: [address] IN M.R.#: [id number] Admission: 06/02/19 Attend Phys: Vikram Cazares Discharge: Date of : 43 Report #: [id number] THIS REPORT FOR: //name// CC: Christos Figueroa FAM unknown Vikram Dhaliwal DATE OF SERVICE: 06/08/2019 CHIEF COMPLAINT: Status post incision and drainage, left foot due to deep tissue infection. He is resting comfortably, relates decreased sternal pain from CPR. He is on parenteral Zosyn with good tolerance. He has been afebrile, he had hemodialysis yesterday. PHYSICAL EXAMINATION: Open wound present with red granulation with surrounding cyanosis. The skin inferior to the lateral wound has delayed capillary refill of roughly 1 second. The dorsal wound skin margin has a faster capillary refill of roughly 0.5 seconds. There is a red granular wound bed with minimal slough. There is no exposed bone or tendon. The left lower extremity is very edematous, no popliteal adenopathy noted. No calf pain bilaterally. IMPRESSION: Postoperative, left foot wound from deep tissue infection. PLAN: I will consult Vascular Surgery for further workup. Continue daily dressing change with Aquacel Ag, ABD and Kerlix. The patient encouraged to elevate extremity, although he may ambulate in a surgical shoe for short distances with physical therapy. <ELECTRONICALLY SIGNED> By: Christos Figueroa DPM 06/11/19 1310 1429 [id number] Figueroa DPM /nt
--- NOTE | 2019-06-11 13:10 | CON ---
[address] [address] CONSULTATION Name: SAURABH PULIDO Room: [address] IN M.R.#: [id number] Admission: 06/02/19 Attend Phys: Vikram Cazares Discharge: Date of : 43 Report #: [id number] THIS REPORT FOR: //name// CC: Christos Figueroa FAM unknown Vikram Dhaliwal DATE OF SERVICE: 06/06/2019 CHIEF COMPLAINT: Status post incision and drainage, left dorsal lateral foot x 2 days. He was extubated 2 days ago, resting comfortably, stable vitals, normal sinus rhythm. He developed hyperkalemia and acute renal failure. He has been afebrile, good appetite. He is on parenteral Zosyn 3.375 mg q. 12 hours. LABORATORY DATA: WBC 13.8, RBC 4.54, hemoglobin 11.6, hematocrit 36.0, platelets 320. BUN 69, creatinine 5.8. Sodium 131, potassium 5.6, chloride 96, CO2 of 17. PHYSICAL EXAMINATION: Substantial decrease in inflammation to left foot. Surgical incision has red granulations with no active bleeding, no underlying fluctuance or crepitation. Foot is cool to the touch, capillary refill roughly 0.5 seconds to the periwound. No pallor or cyanosis. PLAN: Wound was cleansed and repacked with Aquacel Ag, covered with ABDs, Kerlix and Kurt. May place weight to the foot for transfers and short distances. I will follow during hospitalization. <ELECTRONICALLY SIGNED> By: Christos Figueroa DPM 06/11/19 1310 1624 [id number] Figueroa DPM /nt
--- NOTE | 2019-06-11 13:10 | CON ---
[address] [address] CONSULTATION Name: SAURABH PULIDO Room: [address] IN M.R.#: [id number] Admission: 06/02/19 Attend Phys: Vikram Cazares Discharge: Date of : 43 Report #: [id number] THIS REPORT FOR: //name// CC: Christos Figueroa FAM unknown Vikram Dhaliwal DATE OF SERVICE: 06/07/2019 CHIEF COMPLAINT: Status post incision and drainage, left lateral foot with deep tissue infection; septicemia; acute renal failure; bradycardic arrest with code BLUE, likely sepsis; coronary artery disease; hypertension; type 2 diabetes mellitus; atrial fibrillation; NSTEMI, patient is stable; atrial fibrillation rhythm. He is on parenteral Zosyn. Recent outpatient cultures grew methicillin sensitive Staph aureus, sensitivities not available. Possible hemodialysis per Nephrology. LABORATORY DATA: WBC 15.3, RBC 4.87, hemoglobin 12.3, hematocrit 38.4, platelets 349. Sodium 130, potassium 5.8, chloride 96, CO2 15, BUN 78, creatinine 6.4, glucose 113. PHYSICAL EXAMINATION: Surgical wound has red granulation, no active bleeding or purulence. There is low-grade inflammation surrounding the wound with a capillary refill roughly 0.5 seconds. No pallor or cyanosis. The foot is cool to the touch, nonpalpable pedal pulses, advanced edema to the left lower extremity, relatively unchanged. No popliteal adenopathy bilaterally, no calf pain bilaterally. PLAN: The wound was irrigated and packed with Aquacel Ag and covered with ABDs and Kerlix. Continue daily dressing changes, offloading. No further surgical debridement anticipated. We will plan on repeat noninvasive arterial studies pending clinical course. <ELECTRONICALLY SIGNED> By: Christos Figueroa DPM 06/11/19 1310 1407 [id number] Figueroa DPM /nt
[2019-06-11 14:09] LABS: ANA INTERPRETATION Negative (())
--- NOTE | 2019-06-11 15:30 | NUR ---
ASSUMED CARE OF PT AT 0730. PT RESTING IN CHAIR WAITING FOR BREAKFAT. PT A&0X4, COMPLAINED OF PAIN THIS AFTERNOON TO STERNUM AND BACK- TREATED WITH PRN NORCO WITH PARTIAL RELIEF. 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 PT TRACING SR WITH FIRST DEGREE ON THE CAUL PULLER. ON RA SAT UPPER 90'S. PT DENIES ANY SHORTNESS OF BREATH. TREVINO TO DEPENDENT DRAINAGE WITH LOW URINE OUTPUT-BLOOD TINGED URINE. WOUND CARE GIVEN TO LEFT FOOT-DRESSING CHANGED. PT UP WITH 1 -2 ASSIST GITA MARKHAM. PT GOAL FOR TODAY IS WORK WITH PHYSICAL AND OCCUPATIONAL THERAPY AND PAIN MGMT, AM ASSESSMENT CHARTED. MEDICATIONS PER OCT. PT REPOSITIONS SELF WITH REMINDERS. HOURLY ROUNDING OBSERVED. BED IN LOW POSITION. CALL LIGHT WITHIN REACH. WILL CONTINUE PLAN OF CARE.
--- NOTE | 2019-06-11 18:39 | NUR ---
NO ACUTE CHANGES THROUGHOUT SHIFT. REFER TO CHARTING. PT WORKED WITH PHYSICAL AND OCCUPATIONAL THERAPY-TOLERATED WELL. PT UP TO CHAIR FOR MEALS. POSSIBLE DIALYSIS TOMORROW 06/12. CONTINUES TO TRACE SR WITH FIRST DEGREE ON THE BINDERY MACHINE OPERATOR. ON RA SAT UPPER 90'S. DENIES ANY SHORTNESS OF BREATH. MEDICATIONS PER OCT. PT REPOSITIONS SELF WITH REMINDERS. HOURLY ROUNDING OBSERVED. BED IN LOW POSITION. CALL LIGHT WITHIN REACH. WILL CONTINUE PLAN OF CARE.
[2019-06-12] VITALS: BP 114/60
[2019-06-12 03:30] VITALS: BP 146/73
[2019-06-12 04:48] LABS: ALBUMIN 2.4 g/dL (3.4-5.0); CALCIUM 8.7 mg/dL (8.5-10.1); POTASSIUM 4.3 mmol/L (3.5-5.1); TOTAL BILIRUBIN 0.4 mg/dL (<0.1-1.0); TOTAL PROTEIN 6.8 g/dL (6.4-8.2)
[2019-06-12 04:49] LABS: CREATININE 7.2 mg/dL (0.6-1.3)
--- NOTE | 2019-06-12 05:19 | NUR ---
PT SLEPT MOST OF SHIFT. ASSESSMENT DOCUMENTED. MEDS GIVEN PER E-OCT. IV PATENT. PAIN MEDS GIVEN PER E-MAR WITH PARTIAL RELIEF. PT SLEPT IN RECLINER THIS SHIFT. ISOLATION MAINTAINED. WILL CONTINUE WITH PLAN OF CARE.
[2019-06-12 08:17] VITALS: BP 157/73
--- NOTE | 2019-06-12 11:11 | NUR ---
ASSUMED CARE AFTER REPORT APPROX 0730. A&OX4, ABSENTEE-SHAWNEE, ABLE TO COMMUNICATE NEEDS TO STAFF. VS OBTAINED, WNL. ASSESSMENT COMPLETE, DOCUMENTED BY STUDENT. THIS NURSE IN AGREEMENT WITH CHARTED ASSESSMENT. WEIGHT BEARING LIMITATION OBSERVED. ISOLATION FOR MRSA HX MAINTAINED. CALL LIGHT IN REACH.
--- NOTE | 2019-06-12 14:17 | NUR ---
WOUND CARE NOTE: PATIENT IN DIALYSIS, WILL ATTEMPT TO ASSESS TOMORROW.
--- NOTE | 2019-06-12 15:22 | NUR ---
Faxed HD referral to [facility]
[2019-06-12 20:00] VITALS: BP 159/88
[2019-06-13] VITALS (8 sets, daily range): BP systolic 134–157; BP diastolic 64–79
--- NOTE | 2019-06-13 04:08 | NUR ---
ASSUMED PT CARE AT APPROX 1930. PT IS AWAKE AND ORIENTED X4. VSS ON ROOM AIR. HAIR SPECIALIST IN PLACE TRACING SR w/ a 1ST DEGREE AVB AND SOME PVCs. ASSESSMENT DONE AND CHARTED. PT C/O STERNAL AND RIB PAIN PARTIALLY RELIEVED BY PAIN MEDS GIVEN PER OCT. DRESSING CHANGE DONE ON LEFT FOOT WOUND. PT IS ABLE TO SLEEP MOST OF THE NIGHT. CALL LIGHT WITHIN REACH. HOURLY ROUNDING DONE FOR PT SAFETY. HIGH FALL PRECAUTIONS IN PLACE.
[2019-06-13 04:58] LABS: CALCIUM 8.7 mg/dL (8.5-10.1); CREATININE 6.1 mg/dL (0.6-1.3); MAGNESIUM 2.1 mg/dL (1.8-2.4); POTASSIUM 4.1 mmol/L (3.5-5.1)
[2019-06-13 11:42] LABS: APTT 29.7 Seconds (25.0-31.3); INR 1.1; PROTIME 11.4 Seconds (9.20-11.50)
--- NOTE | 2019-06-13 12:00 | NUR ---
ASSUMED CARE AFTER REPORT APPROX 0730. A&OX4, ABLE TO EXPRESS NEEDS TO STAFF. CREDIT AND LOAN COLLECTIONS SUPERVISOR IN PLACE, SR/SB. O2 SATS >92% ON RA. PATIENT AGREEABLE TO ALLOW COOK CHEF TO ADMINISTER CARE THIS MORNING. IN AGREEMENT WITH DOCUMENTED STUDENT NURSE ASSESSMENT. CALL LIGHT IN REACH. HOURLY ROUNDING FOR SAFETY.
--- NOTE | 2019-06-13 13:17 | NUR ---
WOUND CARE NOTE: REASSESSMENT OF LEFT FOOT ULCER REDNESS HAS SIGNIFICANTLY SUBSIDED, NOW ONLY AROUND THE WOUND ITSELF. BILATERAL FEET/LEGS ARE EDEMATOUS 3-4+ PITTING. BLISTERS X2 FORMING TO THE RIGHT JEFFERS. LEFT FOOT: WOUND MEASURES 1.6X7.7X0.9. ERYTHEMA NOTED TO DOUG-WOUND. WOUND BED IS DARK RED, NON-GRANULAR. CLEANSED, NO DRAINAGE NOTED. PACKED WITH AQUACEL AG AND COVERED WITH ABD. APPLIED LOTION TO BILATERAL LEGS, INTACT SKIN. APPLIED KERLIX AND SOL FROM TOES TO KNEES BILATERALLY. EDUCATED PATIENT ON KEEPING LEGS ELEVATED AND COMPRESSION THERAPY, COMMUNICATED UNDERSTANDING. RECOMMEND KEEP LEGS ELEVATED TIGHT BLOOD GLUCOSE CONTROL ENCOURAGE GOOD NUTRTION/HYDRATION ONCE ABLE TO EAT AGAIN DAILY DRESSING CHANGES ORDERED
--- NOTE | 2019-06-13 16:09 | NUR ---
Approval letter for outpt dialysis received, pending them receiving the placement report of the TDC, to be placed today and CM will fax. Pt to start HD on Sunday, with a -TH-Sun schedule at 630am. Following.
[2019-06-14] VITALS: BP 151/77
[2019-06-14 04:00] VITALS: BP 124/65
--- NOTE | 2019-06-14 04:08 | NUR ---
ASSUMED PT CARE AT APPROX 1930. PT IS AWAKE AND ORIENTED X4. VSS ON ROOM AIR. GUNNER'S MATE M IN PLACE TRACING SR w/ 1st DEGREE AVB. ASSESSMENT DONE AND CHARTED. TUNNELLED DIALYSIS CATHETER IN PLACE, DRESSING IS CLEAN,DRY AND INTACT. PT C/O PAIN ON TDC SITE AND ON THE RIBS AND STERNUM, RELIEVED BY PAIN MEDS GIVEN PER OCT. TREVINO CATH INTACT, DRAINING FREELY, HEMATURIA IS STILL NOTED.PT IS ABLE TO SLEEP MOST OF THE NIGHT. CALL LIGHT WITHIN REACH. HIGH FALL PRECAUTIONS IN PLACE. HOURLY ROUNDING DONE FOR PT SAFETY.
[2019-06-14 06:13] LABS: POTASSIUM 4.4 mmol/L (3.5-5.1)
[2019-06-14 06:48] LABS: ALBUMIN 2.2 g/dL (3.4-5.0); CALCIUM 8.5 mg/dL (8.5-10.1); TOTAL BILIRUBIN 0.3 mg/dL (<0.1-1.0); TOTAL PROTEIN 6.4 g/dL (6.4-8.2)
[2019-06-14 06:51] LABS: CREATININE 7.6 mg/dL (0.6-1.3)
[2019-06-14 08:00] VITALS: BP 152/82
[2019-06-14 09:08] VITALS: BP 152/82
[2019-06-14] MEDS ORDERED: ASPIRIN325 PO (10:40)
[2019-06-14] MEDS ORDERED: AMOX TR-K CLV1 EAC3 PO (10:40)
[2019-06-14] MEDS ORDERED: HYDROCODON-ACE1 EAC7 PO (10:40)
[2019-06-14] MEDS ORDERED: LOPRESSOR50 PO (10:40)
--- NOTE | 2019-06-14 11:57 | NUR ---
assumed pt care report received from nurse. pt is aox4, on ra. sinus rythm 1st av block bbb on exhaust and muffler fitter. blood patent ( hematuria). left foot wound dressing intact. pt up with stand by assit to restroom with walker. last bowel movnt today. discharge pending post dialysis. pt left floor for dialysis at 1155. accucheck. will continue to monitor
--- NOTE | 2019-06-14 15:39 | NUR ---
NURSE CONTACTED [facility]. PT INFO FAXED TO [facility]. AWAITING FOR APPROVAL NOTICE. WOUND CARE PERFORMED. DISCHARGE PICTURES TAKEN AND PLACED IN CHART. PT BACK FROM DIALYISIS. TREVINO OUT ORDERED.
--- NOTE | 2019-06-14 15:43 | NUR ---
NO INSULIN GIVEN PT WANTS TO SKIP MEAL WHILE IN DIALYSIS. NURSE OFFERED LUNCH AFTER DIALYSIS PT REFUSED. NO HEPARIN GIVEN PT IS DISCHARGED. AWAITING FOR HOME HEALTH AND RIDE
--- NOTE | 2019-06-14 17:14 | NUR ---
[facility] ACCEPTED PATIENT. DISCHARGE INSTRUCTION GIVEN TO PT. PATIENT LEFT UNIT ACCOMPANIED BY NURSING STAFF ON WHEELCHAIR.
--- NOTE | 2019-06-18 13:53 | CON ---
[address] [address] CONSULTATION Name: SAURABH PULIDO Room: [address] IN M.R.#: [id number] Admission: 06/02/19 Attend Phys: Vikram Cazares Discharge: 06/14/19 Date of : 43 Report #: [id number] THIS REPORT FOR: //name// CC: Christos Figueroa FAM unknown Vikram Dhaliwal DATE OF SERVICE: 06/11/2019 CHIEF COMPLAINT: Postoperative left foot with incision and drainage. Status post code blue. Drug-induced bradycardic arrest with acute renal failure. He dialyzed yesterday. He is off parenteral antibiotics. His foot was inspected earlier today by Dr. Contreras and the wound nurse, and rewrapped. He denies bleeding or pain to the extremity. I reviewed labs and Vascular Surgery note. No change in wound care at this point. The patient to remain partial weightbearing in a surgical shoe with walker for short distances. I will follow up with him during his hospitalization. <ELECTRONICALLY SIGNED> By: Christos Figueroa DPM 06/18/19 1353 1613 [id number] Figueroa DPM /nt
--- NOTE | 2019-06-18 13:53 | CON ---
[address] [address] CONSULTATION Name: SAURABH PULIDO Room: [address] IN M.R.#: [id number] Admission: 06/02/19 Attend Phys: Vikram Cazares Discharge: 06/14/19 Date of : 43 Report #: [id number] THIS REPORT FOR: //name// CC: Christos Figueroa FAM unknown Vikram Dhaliwal DATE OF SERVICE: 06/04/2019 The patient with soft tissue infection to left lateral foot along the fifth metatarsal. He had a code blue due to drug-induced bradycardia, status post CPR resuscitation. He is currently intubated, in normal sinus rhythm. PHYSICAL EXAMINATION: Inflammation and erythema to the left lateral foot consistent with cellulitis and deep tissue infection. No radiographic findings for osteomyelitis. He is status post resection of the left distal fifth metatarsal and toe for osteomyelitis of the distal fifth metatarsal with clear surgical margins. No pallor, cyanosis or signs of acute vascular embarrassment. The foot is warm to the touch, negative. No popliteal adenopathy noted. IMPRESSION: Deep tissue infection, left foot with diabetic foot ulceration. PLAN: A 10 mL of 1% lidocaine were injected proximal to the fifth metatarsal base for local anesthesia. The area was prepped with alcohol and Betadine and an incision was created over the distal fifth metatarsal extending parallel to the metatarsal into the existing lateral foot wound. Blunt dissection with the hemostat carried down into the deep subcutaneous tissue layer with roughly 1 mL of purulent drainage expressed. The wound was flushed with wound cleanser, dried and packed with Aquacel Ag and wrapped with ABDs, Kerlix and Kurt bandage. <ELECTRONICALLY SIGNED> By: Christos Figueroa DPM 06/18/19 1353 1300 1407Christos Figueroa DPM /nt
== END 2019-06-14 17:00 | disposition home health service (06) | DRG 853 ==
LOC: M.ICU 16:11 → M.3W 16:11 → M.ICU 06-03 17:32 → M.2W 06-06 19:16
PROVIDERS: Family Medicine; Internal Medicine; Internal Medicine Cardiovascular Disease; Internal Medicine Nephrology; ADMIT Family Medicine
PROC: 0JBR0ZZ Excision of Left Foot Subcutaneous Tissue and Fascia, Open Approach (ICD-10-PCS; principal; 2019-06-02)
PROC: 5A12012 Performance of Cardiac Output, Single, Manual (ICD-10-PCS; principal; 2019-06-02)
PROC: 0BH17EZ Insertion of Endotracheal Airway into Trachea, Via Natural or Artificial Opening (ICD-10-PCS; 2019-06-03)
PROC: 5A1935Z Respiratory Ventilation, Less than 24 Consecutive Hours (ICD-10-PCS; 2019-06-03)
PROC: 02HV33Z Insertion of Infusion Device into Superior Vena Cava, Percutaneous Approach (ICD-10-PCS; 2019-06-07)
PROC: B548ZZA Ultrasonography of Superior Vena Cava, Guidance (ICD-10-PCS; 2019-06-07)
PROC: 5A1D70Z Performance of Urinary Filtration, Intermittent, Less than 6 Hours Per Day (ICD-10-PCS; 2019-06-08)
PROC: 5A1D70Z Performance of Urinary Filtration, Intermittent, Less than 6 Hours Per Day (ICD-10-PCS; 2019-06-09)
PROC: 5A1D70Z Performance of Urinary Filtration, Intermittent, Less than 6 Hours Per Day (ICD-10-PCS; 2019-06-12)
PROC: 0JH63XZ Insertion of Tunneled Vascular Access Device into Chest Subcutaneous Tissue and Fascia, Percutaneous Approach (ICD-10-PCS; 2019-06-13)
PROC: B5181ZA Fluoroscopy of Superior Vena Cava using Low Osmolar Contrast, Guidance (ICD-10-PCS; 2019-06-13)
PROC: B548ZZA Ultrasonography of Superior Vena Cava, Guidance (ICD-10-PCS; 2019-06-13)
PROC: 02HV33Z Insertion of Infusion Device into Superior Vena Cava, Percutaneous Approach (ICD-10-PCS; 2019-06-13)
DX: A41.9 Sepsis, unspecified organism (principal); J69.0 Pneumonitis due to inhalation of food and vomit; I46.9 Cardiac arrest, cause unspecified; I21.4 Non-ST elevation (NSTEMI) myocardial infarction; I50.21 Acute systolic (congestive) heart failure; N17.0 Acute kidney failure with tubular necrosis; L03.116 Cellulitis of left lower limb; L02.612 Cutaneous abscess of left foot; L97.429 Non-pressure chronic ulcer of left heel and midfoot with unspecified severity; N17.9 Acute kidney failure, unspecified; E44.1 Mild protein-calorie malnutrition; E87.2 Acidosis; M31.9 Necrotizing vasculopathy, unspecified; E11.9 Type 2 diabetes mellitus without complications; Z79.899 Other long term (current) drug therapy; Z79.4 Long term (current) use of insulin; I25.10 Atherosclerotic heart disease of native coronary artery without angina pectoris; E78.00 Pure hypercholesterolemia, unspecified; E78.5 Hyperlipidemia, unspecified; Z90.49 Acquired absence of other specified parts of digestive tract; I48.91 Unspecified atrial fibrillation; E11.621 Type 2 diabetes mellitus with foot ulcer; D64.9 Anemia, unspecified; E87.5 Hyperkalemia; R00.1 Bradycardia, unspecified; T50.905A Adverse effect of unspecified drugs, medicaments and biological substances, initial encounter; F17.210 Nicotine dependence, cigarettes, uncomplicated; I48.0 Paroxysmal atrial fibrillation; M71.1 Other infective bursitis; N28.89 Other specified disorders of kidney and ureter; E83.39 Other disorders of phosphorus metabolism; N28.9 Disorder of kidney and ureter, unspecified; E66.01 Morbid (severe) obesity due to excess calories; E11.51 Type 2 diabetes mellitus with diabetic peripheral angiopathy without gangrene; I11.0 Hypertensive heart disease with heart failure; S20.219A Contusion of unspecified front wall of thorax, initial encounter; X58.XXXA Exposure to other specified factors, initial encounter; Z79.84 Long term (current) use of oral hypoglycemic drugs; Z95.1 Presence of aortocoronary bypass graft; Z89.429 Acquired absence of other toe(s), unspecified side; Y92.89 Other specified places as the place of occurrence of the external cause; Z68.31 Body mass index [BMI] 31.0-31.9, adult

== ENCOUNTER → 2019-06-18 | Outpatient (CLI) | payer OTHER ==
[~2019-06-18] MED LIST changes: +AMOX TR-K CLV1 EAC3 PO; +ASPIRIN325 PO; +HYDROCODON-ACE1 EAC7 PO; +LOPRESSOR50 PO
--- NOTE | 2019-06-19 13:20 | CON ---
[address] [address] CONSULTATION Name: ASHOKSAURABH Neville [id number] Admission: 06/18/19 Attend Phys: Christos Figueroa DPM Discharge: Date of : 43 Report #: [id number] THIS REPORT FOR: //name// CC: Christos Smith DATE OF SERVICE: 06/18/2019 INFECTIOUS DISEASE CONSULTATION ATTENDING PHYSICIAN: Christos Riley DPM REASON FOR EVALUATION: He is here for followup of left lateral foot skin and soft tissue infection with abscess post-evacuation and debridement. HISTORY OF PRESENT ILLNESS: Chart reviewed, the patient examined. The patient returns today in followup, having been hospitalized and subsequently discharged. New to him as he has been started on hemodialysis, he has undergone 1 previous treatment is scheduled for tomorrow as well. He generally feels somewhat better. He does have a more generalized edema of the right lower extremity as well. There has been an attempt to remove fluid with the dialysis. He denies any fevers or chills. Appetite has generally been good and improved. DISCHARGE: He is currently on Augmentin 250 p.o. b.i.d. noted for his renal insufficiency. ASSESSMENT AND PLAN: Deep infection, left foot, although lack of evidence that involves a hard tissue. We will continue current approach with the Augmentin, had received several days of parenteral therapy as well during hospitalization. Continue wound care as prescribed by Dr. Figueroa. We will see him in followup in one week. <ELECTRONICALLY SIGNED> By: Javad Daniels MD 06/19/19 1320 1755 [id number] Daniels MD /nt
== END ==
LOC: M.WC 03:17
DX: T81.89XA Other complications of procedures, not elsewhere classified, initial encounter (principal); E11.621 Type 2 diabetes mellitus with foot ulcer; L97.522 Non-pressure chronic ulcer of other part of left foot with fat layer exposed; L89.892 Pressure ulcer of other site, stage 2; S80.821A Blister (nonthermal), right lower leg, initial encounter; L03.116 Cellulitis of left lower limb; L84 Corns and callosities; E11.40 Type 2 diabetes mellitus with diabetic neuropathy, unspecified; E11.51 Type 2 diabetes mellitus with diabetic peripheral angiopathy without gangrene; I25.10 Atherosclerotic heart disease of native coronary artery without angina pectoris; F17.200 Nicotine dependence, unspecified, uncomplicated; X58.XXXA Exposure to other specified factors, initial encounter; Y93.89 Activity, other specified; Y92.89 Other specified places as the place of occurrence of the external cause; Y99.8 Other external cause status; Y83.8 Other surgical procedures as the cause of abnormal reaction of the patient, or of later complication, without mention of misadventure at the time of the procedure

== ENCOUNTER → 2019-06-25 | Outpatient (CLI) | payer OTHER ==
--- NOTE | 2019-06-26 11:58 | CON ---
[address] [address] CONSULTATION Name: SAURABH PULIDO Room: [facility] RENAE Perez#: [id number] Admission: 06/25/19 Attend Phys: Christos Figueroa DPM Discharge: Date of : 43 Report #: [id number] THIS REPORT FOR: //name// CC: Christos Smith DATE OF SERVICE: 06/25/2019 FOLLOWUP INFECTIOUS DISEASE CONSULTATION HISTORY OF PRESENT ILLNESS: He is seen in the outpatient [facility]. Chart reviewed, the patient examined. The patient returns in followup. He post hospitalization had developed skin and soft tissue infection with abscess, underwent operative debridement, was confirmed to have ____ is receiving vancomycin with dialysis on dialysis days. He has completed roughly 2 weeks of therapy. Generally, he is animated. He denies any significant systemic illness. He has peripheral neuropathy and denies localized pain or discomfort associated with the lateral aspect of the left foot. PHYSICAL EXAMINATION: On examination, the wound appears to be diminishing in size. There is no evidence to probe to deeper structures. The overall degree of inflammation is diminished on the lower extremities bilateral. He developed several superficial bullous lesions with denuding on the right. It seemed to have primarily healed at this point. IMPRESSION AND PLAN: Left lateral foot operative wound. We will continue at least 1 additional week with the vancomycin during dialysis. We will see him back at that point to reevaluate. <ELECTRONICALLY SIGNED> By: Javad Daniels MD 06/26/19 1158 0840 [id number] Daniels MD /nt
== END ==
LOC: M.WC 05:00
DX: T87.89 Other complications of amputation stump (principal); S80.821D Blister (nonthermal), right lower leg, subsequent encounter; L03.116 Cellulitis of left lower limb; E11.69 Type 2 diabetes mellitus with other specified complication; M86.8X7 Other osteomyelitis, ankle and foot; E11.42 Type 2 diabetes mellitus with diabetic polyneuropathy; E11.51 Type 2 diabetes mellitus with diabetic peripheral angiopathy without gangrene; I25.10 Atherosclerotic heart disease of native coronary artery without angina pectoris; F17.200 Nicotine dependence, unspecified, uncomplicated; X58.XXXD Exposure to other specified factors, subsequent encounter; Y83.5 Amputation of limb(s) as the cause of abnormal reaction of the patient, or of later complication, without mention of misadventure at the time of the procedure

== ENCOUNTER → 2019-07-02 | Outpatient (CLI) | payer OTHER ==
--- NOTE | 2019-07-03 12:18 | CON ---
[address] [address] CONSULTATION Name: ASHOKSAURABH J Room: [facility] Chris#: [id number] Admission: 07/02/19 Attend Phys: Christos Figueroa DPM Discharge: Date of : 43 Report #: [id number] THIS REPORT FOR: //name// CC: Christos Smith DATE OF SERVICE: 07/02/2019 INFECTIOUS DISEASE CONSULTATION ATTENDING PHYSICIAN: Christos Figueroa DPM HISTORY OF PRESENT ILLNESS: He is here for the left foot lateral wound. This is a site of a soft tissue abscess requiring operative debridement with residual ulcer at this point. Generally, he is feeling better. He notes his creatinine has been improving and he was instructed by physician that dialysis may be short term, little as 1 additional week. He has not had fevers or chills. Appetite has generally been good. He has minimal discomfort associated with his foot. PHYSICAL EXAMINATION: On examination, the wound appears to be tracking in size, there is very little inflammation noted superficially. It is nontender. There is no odor, no purulence. ASSESSMENT AND PLAN: Lateral left foot subcutaneous abscess post-debridement with residual wound. We will continue at this point with no additional antibiotics. He had completed prescribed course until seen in followup in 2 weeks' time and that should hopefully be the extent of the visits. Continue wound care as prescribed, optimize his nutritional status and would certainly be very good news if he does not require long-term dialysis. <ELECTRONICALLY SIGNED> By: Javad Daniels MD 07/03/19 1218 1739 0003Joseearnest Daniels MD /nt
== END ==
LOC: M.WC 04:54
DX: T81.89XD Other complications of procedures, not elsewhere classified, subsequent encounter (principal); E11.621 Type 2 diabetes mellitus with foot ulcer; L97.422 Non-pressure chronic ulcer of left heel and midfoot with fat layer exposed; L03.116 Cellulitis of left lower limb; E11.51 Type 2 diabetes mellitus with diabetic peripheral angiopathy without gangrene; E11.40 Type 2 diabetes mellitus with diabetic neuropathy, unspecified; I25.10 Atherosclerotic heart disease of native coronary artery without angina pectoris; F17.200 Nicotine dependence, unspecified, uncomplicated; Y83.8 Other surgical procedures as the cause of abnormal reaction of the patient, or of later complication, without mention of misadventure at the time of the procedure

== ENCOUNTER → 2019-07-08 | Outpatient (CLI) | payer OTHER ==
[2019-07-08 12:04] LABS: CALCIUM 8.9 mg/dL (8.5-10.1); CREATININE 1.7 mg/dL (0.6-1.3); POTASSIUM 3.9 mmol/L (3.5-5.1)
== END ==
LOC: M.LAB 11:27
PROVIDERS: Nurse Practitioner Family
DX: N17.9 Acute kidney failure, unspecified (principal)

== ENCOUNTER → 2019-07-11 | Outpatient (CLI) | payer OTHER ==
[2019-07-11 11:33] LABS: CALCIUM 9.2 mg/dL (8.5-10.1); POTASSIUM 4.4 mmol/L (3.5-5.1)
== END ==
LOC: M.LAB 10:53
PROVIDERS: Nurse Practitioner Family
DX: N17.9 Acute kidney failure, unspecified (principal)

== ENCOUNTER → 2019-07-14 | Outpatient (CLI) | payer OTHER ==
[2019-07-14 12:55] LABS: CALCIUM 9.3 mg/dL (8.5-10.1); CREATININE 1.3 mg/dL (0.6-1.3); POTASSIUM 4.2 mmol/L (3.5-5.1)
== END ==
LOC: M.LAB 12:13
PROVIDERS: Nurse Practitioner Family
DX: N17.9 Acute kidney failure, unspecified (principal)

== ENCOUNTER → 2019-07-16 | Outpatient (CLI) | payer OTHER ==
--- NOTE | 2019-07-17 16:47 | CON ---
[address] [address] CONSULTATION Name: ASHOKSAURABH J Room: [facility] Chris#: [id number] Admission: 07/16/19 Attend Phys: Christos Figueroa DPM Discharge: Date of : 43 Report #: [id number] THIS REPORT FOR: //name// CC: Christos Smith DATE OF SERVICE: 07/16/2019 INFECTIOUS DISEASE CONSULT ATTENDING PHYSICIAN: Dr. Christos Figueroa. HISTORY OF PRESENT ILLNESS: The patient returns today in followup for treatment, left lateral foot wound site of previous abscess debridement. Generally, he has been doing well. He actually was able to come off dialysis. He is supposed to have the line taken out. Clearly, his distal lower extremities are improved with much less edema. Overall degree of inflammation is mild at this point. On evaluation, the wound is clean, there is no necrotic material. There is no purulence, no odor. ASSESSMENT AND PLAN: Chronic ulceration as a result of evacuation of a skin and soft tissue infection with abscess. At this point, I have no plans for additional antimicrobial therapy. Continue wound care as prescribed by Dr. Figueroa. We will be available as needed. <ELECTRONICALLY SIGNED> By: Javad Daniels MD 07/17/19 1647 0821 [id number] Katie Daniels MD /nt
== END ==
LOC: M.WC 03:56
DX: T81.89XD Other complications of procedures, not elsewhere classified, subsequent encounter (principal); E11.621 Type 2 diabetes mellitus with foot ulcer; L97.422 Non-pressure chronic ulcer of left heel and midfoot with fat layer exposed; L03.116 Cellulitis of left lower limb; E11.40 Type 2 diabetes mellitus with diabetic neuropathy, unspecified; E11.51 Type 2 diabetes mellitus with diabetic peripheral angiopathy without gangrene; E11.69 Type 2 diabetes mellitus with other specified complication; M86.8X7 Other osteomyelitis, ankle and foot; I25.10 Atherosclerotic heart disease of native coronary artery without angina pectoris; F17.200 Nicotine dependence, unspecified, uncomplicated; Y83.8 Other surgical procedures as the cause of abnormal reaction of the patient, or of later complication, without mention of misadventure at the time of the procedure

== ENCOUNTER → 2019-07-22 | Outpatient (CLI) | payer OTHER ==
--- NOTE | 2019-07-22 19:15 | CARDNUC ---
[place] [address] CARDIAC NUCLEAR IMAGING REPORT Name: SAURABH PULIDO Room: [facility]#: [id number] Admission: 07/22/19 Attend Phys: Marvel Franklin, Discharge: Date of : 43 Date of Service: 07/22/191913 Report #: [id number] THIS REPORT FOR: //name// APPROVED REPORT Imaging Protocol: Rest Tc-99m/Stress Tc-99m 1 day Study performed: 07/22/2019 11:45:00 Indication: Chest pain, Dyspnea, recent elevated Troponin, increased fatigue. Patient Location: Out-Patient Stress Tech: Meena Ordoñez Stress Nurse: Alesia Carpio RN NM Tech:DELIO Polanco Ht: 6 ft 0 in Wt: 212 lbs BSA: 2.18 m2 BMI: 28.74 Medical History Medical History: Angina, Atrial Fibrillation, CAD s/p CABG, CAD s/p GA, CAD s/p stent, Cardiomyopathy, CHF, CKD, COPD, Diabetic Insulin, Fatigue, Former Smoker, Heart failure, HTN, Hyperlipidemia, PAD, PVD, SOB, Weakness, Dialysis, LE edema, left foot wound, NSTEMI, Cardiac Arrest, Murmur. Medications: ASA 325 MG, Metoprolol, Rosuvastatin, Insulin, Jardiance. Allergies: No known drug allergies Cardiac Risk Factors: Age, Diabetes (insulin), FHX of CAD, HTN, Hyperlipidemia, SOB, Past Smoker, Tobacco History (Former), PVD, PAD, CHF , HX AFib. Previous Cardiac Procedures: CABG, PCI, Myocardial infarction Pretest Chest Pain Characteristics: No chest pain Exercise History: Sedentary Physical Disabilities: Generalized weakness/fatigue, HX AFib, Murmur, unsteady gait,cane user for ambulation, foot wound, LE edema, Murmur. Meds Held (24 hrs): Metoprolol. Resting Data Rest SPECT myocardial perfusion imaging was performed in supine position 30 minutes following the intravenous injection of 11.2 mCi of Tc-99m Sestamibi. Time of rest injection: 12:40 The images were gated to evaluate regional wall motion and calculate [place] [address] CARDIAC NUCLEAR IMAGING REPORT Name: SAURABH PULIDO [id number] Admission: 07/22/19 Attend Phys: Marvel Franklin, Discharge: Date of : 43 Date of Service: 07/22/19 1914 Report #: [id number] Administration Route: IV Administration Site: Right AC Pharmacologic Stress Pharmacologic stress test was performed by injecting Regadenoson 0.4 mg IV push over 10-15 seconds immediately followed by the intravenous injection of 35.1 mCi of Tc-99m Sestamibi. Time of stress injection: 14:15 Administration Route: IV Administration Site: Right AC Heart Rate at time of stress injection: 81 bpm. Gated Stress SPECT was performed 45 minutes after stress injection. The images were gated to evaluate regional wall motion and calculate left ventricular ejection fraction. Prone imaging was performed. Stress Test Details Stress Test: Pharmacologic stress testing performed using 0.4 mg of regadenoson per 5 mL given IV over 10 seconds. Reason for pharmacologic stress test: Generalized weakness/fatigue, foot wound, LE edema, HX AFib, Cane use for ambulation, Murmur.. HR Max Heart Rate (APMHR): 146 bpm Resting HR: 70 bpm Target HR (85% APMHR): 124 bpm Max HR Achieved: 88 bpm % of APMHR: 60 Recovery HR: 81 bpm BP Resting BP: 166/95 mmHg Max BP: 139/71 mmHg Recovery BP: 155/92 mmHg ECG Resting ECG: Sinus Rhythm, nonspecific ST-T abnormalities Stress ECG: Sinus Rhythm, nonspecific ST-T abnormalities ST Change: None Arrhythmia: None Recovery ECG: Sinus Rhythm, nonspecific ST-T abnormalities Recovery ST Change: None Recovery Arrhythmia: [place] [address] CARDIAC NUCLEAR IMAGING REPORT Name: SAURABH PULIDO Room: [facility]#: [id number] Admission: 07/22/19 Attend Phys: Marvel Franklin, Discharge: Date of : 43 Date of Service: 07/22/191913 Report #: [id number] Reason for Termination: Completed protocol Stress Symptoms: Dyspnea, Fatigue, Weakness, Flushed/Warmth. Exercise duration: 00 min 00 sec Exercise capacity: 1.00 METs The patient tolerated Lexiscan infusion without significant cardiac symptoms. Nurse Comments A 73 year old male presented for sitting Lexiscan r/t CP, Dyspnea and recent elevated Troponin. Test was well tolerated. Recovery unremarkable with PO caffeine, effective. Patient was escorted via wheelchair by staff to Nuclear Medicine for images. Patient was stable and stated he felt good at that time. Stress ECG Conclusion The baseline EKG show sinus rhythm with diffuse ST segment depression. EKGs obtained during and post Lexiscan infusion show sinus rhythm with persistent diffuse ST segment depression that is not changed from baseline study. There were no stress-induced arrhythmias. Study Quality Study: Good Artifact: No artifact Study Data At rest, the left ventricular ejection fraction was 38%.. Post stress, the left ventricular ejection was 41%.. TID = 1.03. Perfusion Perfusion images show a fixed moderate size moderate intensity defect involving the distal anterior and apical wall. No other significant fixed or reversible defects were identified. Wall Motion There is apical hypokinesis. There is a septal wall motion abnormality consistent with prior bypass procedure. Global LV systolic function appears to be mild moderately decreased. Nuclear Conclusion ECG Findings: non-diagnostic Clinical Findings: negative for ischemia Nuclear Findings: negative for ischemia Exercise Capacity: not assessed Left Ventricular Function: [place] [address] CARDIAC NUCLEAR IMAGING REPORT Name: SAURABH PULIDO Room: [facility]#: [id number] Admission: 07/22/19 Attend Phys: Marvel Franklin, Discharge: Date of : 43 Date of Service: 07/22/191913 Report #: [id number] Perfusion images show a fixed defect of the distal anterior wall and apex consistent with prior infarct. There were no reversible defects to suggest ischemia. Global LV systolic function appears mild to moderately decreased with wall motion abnormalities as outlined above. This is not a high risk study. <Conclusion> The baseline EKG show sinus rhythm with diffuse ST segment depression. EKGs obtained during and post Lexiscan infusion show sinus rhythm with persistent diffuse ST segment depression that is not changed from baseline study. There were no stress-induced arrhythmias. <ELECTRONICALLY SIGNED> By: Marvel Franklin MD, FACC 07/22/191913 13 13 Marvel Franklin MD, FACC /INF
== END ==
LOC: M.NUC 06-26 14:33
DX: I25.10 Atherosclerotic heart disease of native coronary artery without angina pectoris (principal); I48.91 Unspecified atrial fibrillation; I25.2 Old myocardial infarction; J44.9 Chronic obstructive pulmonary disease, unspecified; I10 Essential (primary) hypertension; E78.5 Hyperlipidemia, unspecified; E11.51 Type 2 diabetes mellitus with diabetic peripheral angiopathy without gangrene; Z95.5 Presence of coronary angioplasty implant and graft; Z79.4 Long term (current) use of insulin; Z87.891 Personal history of nicotine dependence; Z79.899 Other long term (current) drug therapy

== ENCOUNTER → 2019-07-31 | Outpatient (CLI) | payer OTHER | LOC: M.WC 07-30 05:17 | DX: T81.89XD Other complications of procedures, not elsewhere classified, subsequent encounter (principal); E11.621 Type 2 diabetes mellitus with foot ulcer; L97.425 Non-pressure chronic ulcer of left heel and midfoot with muscle involvement without evidence of necrosis; L03.116 Cellulitis of left lower limb; E11.51 Type 2 diabetes mellitus with diabetic peripheral angiopathy without gangrene; E11.40 Type 2 diabetes mellitus with diabetic neuropathy, unspecified; I25.10 Atherosclerotic heart disease of native coronary artery without angina pectoris; F17.200 Nicotine dependence, unspecified, uncomplicated; Y83.8 Other surgical procedures as the cause of abnormal reaction of the patient, or of later complication, without mention of misadventure at the time of the procedure ==

== ENCOUNTER → 2019-08-07 | Outpatient (CLI) | payer OTHER | LOC: M.WC 01:43 | DX: T81.89XD Other complications of procedures, not elsewhere classified, subsequent encounter (principal); E11.621 Type 2 diabetes mellitus with foot ulcer; L97.422 Non-pressure chronic ulcer of left heel and midfoot with fat layer exposed; L03.116 Cellulitis of left lower limb; E11.51 Type 2 diabetes mellitus with diabetic peripheral angiopathy without gangrene; E11.40 Type 2 diabetes mellitus with diabetic neuropathy, unspecified; I25.10 Atherosclerotic heart disease of native coronary artery without angina pectoris; F17.200 Nicotine dependence, unspecified, uncomplicated; Y83.8 Other surgical procedures as the cause of abnormal reaction of the patient, or of later complication, without mention of misadventure at the time of the procedure ==

== ENCOUNTER → 2019-08-14 | Outpatient (CLI) | payer OTHER | LOC: M.WC 08:39 | DX: T81.89XD Other complications of procedures, not elsewhere classified, subsequent encounter (principal); E11.621 Type 2 diabetes mellitus with foot ulcer; L97.522 Non-pressure chronic ulcer of other part of left foot with fat layer exposed; L03.116 Cellulitis of left lower limb; E11.51 Type 2 diabetes mellitus with diabetic peripheral angiopathy without gangrene; E11.40 Type 2 diabetes mellitus with diabetic neuropathy, unspecified; I25.10 Atherosclerotic heart disease of native coronary artery without angina pectoris; F17.200 Nicotine dependence, unspecified, uncomplicated; Y83.8 Other surgical procedures as the cause of abnormal reaction of the patient, or of later complication, without mention of misadventure at the time of the procedure ==

== ENCOUNTER → 2019-08-20 | Outpatient (CLI) | payer OTHER | LOC: M.WC 04:56 | DX: T81.89XD Other complications of procedures, not elsewhere classified, subsequent encounter (principal); E11.621 Type 2 diabetes mellitus with foot ulcer; L97.525 Non-pressure chronic ulcer of other part of left foot with muscle involvement without evidence of necrosis; L03.116 Cellulitis of left lower limb; E11.51 Type 2 diabetes mellitus with diabetic peripheral angiopathy without gangrene; E11.42 Type 2 diabetes mellitus with diabetic polyneuropathy; I25.10 Atherosclerotic heart disease of native coronary artery without angina pectoris; F17.200 Nicotine dependence, unspecified, uncomplicated; Y83.8 Other surgical procedures as the cause of abnormal reaction of the patient, or of later complication, without mention of misadventure at the time of the procedure ==

== ENCOUNTER → 2019-08-27 | Outpatient (CLI) | payer OTHER | LOC: M.WC 07:19 | DX: T81.89XD Other complications of procedures, not elsewhere classified, subsequent encounter (principal); E11.621 Type 2 diabetes mellitus with foot ulcer; L97.425 Non-pressure chronic ulcer of left heel and midfoot with muscle involvement without evidence of necrosis; L03.116 Cellulitis of left lower limb; B95.61 Methicillin susceptible Staphylococcus aureus infection as the cause of diseases classified elsewhere; E11.51 Type 2 diabetes mellitus with diabetic peripheral angiopathy without gangrene; E11.42 Type 2 diabetes mellitus with diabetic polyneuropathy; I87.2 Venous insufficiency (chronic) (peripheral); I25.10 Atherosclerotic heart disease of native coronary artery without angina pectoris; F17.200 Nicotine dependence, unspecified, uncomplicated; Y83.8 Other surgical procedures as the cause of abnormal reaction of the patient, or of later complication, without mention of misadventure at the time of the procedure ==

== ENCOUNTER → 2019-09-03 | Outpatient (CLI) | payer OTHER | LOC: M.WC 05:06 | DX: T81.89XD Other complications of procedures, not elsewhere classified, subsequent encounter (principal); E11.621 Type 2 diabetes mellitus with foot ulcer; L97.425 Non-pressure chronic ulcer of left heel and midfoot with muscle involvement without evidence of necrosis; L03.116 Cellulitis of left lower limb; B95.61 Methicillin susceptible Staphylococcus aureus infection as the cause of diseases classified elsewhere; E11.51 Type 2 diabetes mellitus with diabetic peripheral angiopathy without gangrene; E11.42 Type 2 diabetes mellitus with diabetic polyneuropathy; I87.2 Venous insufficiency (chronic) (peripheral); I25.10 Atherosclerotic heart disease of native coronary artery without angina pectoris; F17.200 Nicotine dependence, unspecified, uncomplicated; Y83.8 Other surgical procedures as the cause of abnormal reaction of the patient, or of later complication, without mention of misadventure at the time of the procedure ==

== ENCOUNTER → 2019-09-10 | Outpatient (CLI) | payer OTHER | LOC: M.WC 04:24 | DX: T81.89XD Other complications of procedures, not elsewhere classified, subsequent encounter (principal); E11.621 Type 2 diabetes mellitus with foot ulcer; L97.425 Non-pressure chronic ulcer of left heel and midfoot with muscle involvement without evidence of necrosis; L03.116 Cellulitis of left lower limb; E11.51 Type 2 diabetes mellitus with diabetic peripheral angiopathy without gangrene; E11.40 Type 2 diabetes mellitus with diabetic neuropathy, unspecified; I25.10 Atherosclerotic heart disease of native coronary artery without angina pectoris; F17.200 Nicotine dependence, unspecified, uncomplicated; Y83.8 Other surgical procedures as the cause of abnormal reaction of the patient, or of later complication, without mention of misadventure at the time of the procedure ==

== ENCOUNTER → 2019-09-17 | Outpatient (CLI) | payer OTHER | LOC: M.WC 02:22 | DX: T81.89XD Other complications of procedures, not elsewhere classified, subsequent encounter (principal); E11.621 Type 2 diabetes mellitus with foot ulcer; L97.425 Non-pressure chronic ulcer of left heel and midfoot with muscle involvement without evidence of necrosis; L03.116 Cellulitis of left lower limb; E11.51 Type 2 diabetes mellitus with diabetic peripheral angiopathy without gangrene; E11.40 Type 2 diabetes mellitus with diabetic neuropathy, unspecified; I25.10 Atherosclerotic heart disease of native coronary artery without angina pectoris; F17.200 Nicotine dependence, unspecified, uncomplicated; Y83.8 Other surgical procedures as the cause of abnormal reaction of the patient, or of later complication, without mention of misadventure at the time of the procedure ==

== ENCOUNTER → 2019-10-01 | Outpatient (CLI) | payer OTHER | LOC: M.WC 00:18 | DX: T81.89XD Other complications of procedures, not elsewhere classified, subsequent encounter (principal); E11.621 Type 2 diabetes mellitus with foot ulcer; L97.425 Non-pressure chronic ulcer of left heel and midfoot with muscle involvement without evidence of necrosis; L03.116 Cellulitis of left lower limb; L84 Corns and callosities; E11.40 Type 2 diabetes mellitus with diabetic neuropathy, unspecified; E11.51 Type 2 diabetes mellitus with diabetic peripheral angiopathy without gangrene; I25.10 Atherosclerotic heart disease of native coronary artery without angina pectoris; F17.200 Nicotine dependence, unspecified, uncomplicated; Y83.8 Other surgical procedures as the cause of abnormal reaction of the patient, or of later complication, without mention of misadventure at the time of the procedure ==

== ENCOUNTER → 2019-10-08 | Outpatient (CLI) | payer OTHER | LOC: M.WC 02:12 | DX: T81.89XD Other complications of procedures, not elsewhere classified, subsequent encounter (principal); E11.621 Type 2 diabetes mellitus with foot ulcer; L97.512 Non-pressure chronic ulcer of other part of right foot with fat layer exposed; L03.116 Cellulitis of left lower limb; L84 Corns and callosities; E11.51 Type 2 diabetes mellitus with diabetic peripheral angiopathy without gangrene; E11.42 Type 2 diabetes mellitus with diabetic polyneuropathy; I87.2 Venous insufficiency (chronic) (peripheral); I25.10 Atherosclerotic heart disease of native coronary artery without angina pectoris; F17.200 Nicotine dependence, unspecified, uncomplicated; Y83.8 Other surgical procedures as the cause of abnormal reaction of the patient, or of later complication, without mention of misadventure at the time of the procedure ==

== ENCOUNTER → 2019-10-22 | Outpatient (CLI) | payer OTHER | LOC: M.WC 04:49 | DX: T81.89XD Other complications of procedures, not elsewhere classified, subsequent encounter (principal); E11.621 Type 2 diabetes mellitus with foot ulcer; L97.512 Non-pressure chronic ulcer of other part of right foot with fat layer exposed; L84 Corns and callosities; L03.116 Cellulitis of left lower limb; E11.51 Type 2 diabetes mellitus with diabetic peripheral angiopathy without gangrene; E11.40 Type 2 diabetes mellitus with diabetic neuropathy, unspecified; I25.10 Atherosclerotic heart disease of native coronary artery without angina pectoris; F17.200 Nicotine dependence, unspecified, uncomplicated; Y83.8 Other surgical procedures as the cause of abnormal reaction of the patient, or of later complication, without mention of misadventure at the time of the procedure ==

== ENCOUNTER → 2019-11-05 | Outpatient (CLI) | payer OTHER | LOC: M.WC 03:35 | DX: E11.621 Type 2 diabetes mellitus with foot ulcer (principal); L97.512 Non-pressure chronic ulcer of other part of right foot with fat layer exposed; L03.116 Cellulitis of left lower limb; E11.51 Type 2 diabetes mellitus with diabetic peripheral angiopathy without gangrene; E11.42 Type 2 diabetes mellitus with diabetic polyneuropathy; L84 Corns and callosities; I25.10 Atherosclerotic heart disease of native coronary artery without angina pectoris; F17.200 Nicotine dependence, unspecified, uncomplicated ==

== ENCOUNTER → 2019-11-19 | Outpatient (CLI) | payer OTHER | LOC: M.WC 04:34 | DX: E11.621 Type 2 diabetes mellitus with foot ulcer (principal); L97.512 Non-pressure chronic ulcer of other part of right foot with fat layer exposed; L03.116 Cellulitis of left lower limb; L84 Corns and callosities; E11.51 Type 2 diabetes mellitus with diabetic peripheral angiopathy without gangrene; E11.42 Type 2 diabetes mellitus with diabetic polyneuropathy; I25.10 Atherosclerotic heart disease of native coronary artery without angina pectoris; F17.200 Nicotine dependence, unspecified, uncomplicated ==